=== PATIENT | female | born 1980 | race African-American/Black ===

== ENCOUNTER 2017-06-24 11:27 | Emergency (ER) | payer OTHER, MEDICAID ==
[2017-06-24 11:32] VITALS: BP 166/95
[2017-06-24] MEDS ORDERED: HYDROCODONE/ACETAMINOPHEN 5-325 MG TABLET PO ONE (11:59)
--- NOTE | 2017-06-24 11:59 | ER Document Report ---
ED General - General Chief Complaint: Pain Stated Complaint: FACIAL PAIN/NUMBNESS Time Seen by Provider: 06/24/17 11:33 Notes: Patient presents with severe left-sided facial pain. She states she has had this for several days. She states about 4 years ago she had a similar episode and was told she had trigeminal neuralgia. She states she is also currently being worked up by the [facility] for possible multiple sclerosis because she has foot drop in the bilateral lower extremities. She denies any significant teeth pain. She denies any significant changes of her vision or hearing. The pain is severe and constant. It is sharp. It is worse with movement of her facial muscles. It is better with rest. It does radiate across the left side of her face. TRAVEL OUTSIDE OF THE [place] IN LAST 30 DAYS: No - Related Data Allergies/Adverse Reactions: nut - unspecified Allergy (Intermediate, Verified 06/24/17 11:31) Past Medical History - General Information source: Patient - Social History Smoking Status: Current Every Day Smoker Frequency of alcohol use: Occasional Drug Abuse: None Family History: Reviewed & Not Pertinent Neurological Medical History: Denies: Hx Cerebrovascular Accident Renal/ Medical History: Denies: Hx Peritoneal Dialysis GI Medical History: Reports: Hx Gastroesophageal Reflux Disease - RSD Musculoskeltal Medical History: Reports Hx Fibromyalgia, Reports Hx Muscle Spasm Psychiatric Medical History: Reports: Hx Depression - & Anxiety Past Surgical History: Reports: Hx Section, Hx Tubal Ligation - Immunizations Immunizations up to date: Yes Hx Diphtheria, Pertussis, Tetanus Vaccination: Yes Review of Systems - Review of Systems Constitutional: denies: Chills, Fever EENT: denies: Double vision, Mouth swelling Neurological/Psychological: Weakness. denies: Paralysis Physical Exam - Vital signs Vitals: Temp Pulse BP Pulse Ox 98.6 F 75 166/95 H 100 06/24/17 11:31 06/24/17 11:31 06/24/17 11:31 06/24/17 11:31 Interpretation: Hypertensive - General General appearance: Appears well, Alert - HEENT Head: Normocephalic, Atraumatic, Other - Facial exam shows patient have severe tenderness to palpation of the left side of the face. There does appear to be some mild swelling of the left side of the face diffusely. There is no induration or erythema. I did a thorough exam of the patient's gums and teeth and see no evidence of tooth infection. Eyes: Normal Conjunctiva: Normal Pupils: PERRL Nerve palsy: No Mouth/Lips: Normal Mucous membranes: Moist Pharynx: Normal Neck: Normal - Respiratory Respiratory status: No respiratory distress Chest status: Nontender Breath sounds: Normal Chest palpation: Normal - Cardiovascular Rhythm: Regular Heart sounds: Normal auscultation Murmur: No - Abdominal Inspection: Normal Distension: No distension Bowel sounds: Normal Tenderness: Nontender Organomegaly: No organomegaly - Back Back: Normal, Nontender - Extremities General upper extremity: Normal inspection, Nontender, Normal color, Normal ROM , Normal temperature General lower extremity: Normal inspection, Nontender, Normal color, Normal ROM , Normal temperature, Normal weight bearing. No: Edwardo's sign - Neurological Neuro grossly intact: Yes Cognition: Normal Orientation: AAOx4 Dodge Coma Scale Eye Opening: Spontaneous Dodge Coma Scale Verbal: Oriented Dodge Coma Scale Motor: Obeys Commands Dodge Coma Scale Total: 15 Speech: Normal Motor strength normal: LUE, RUE, LLE, RLE Sensory: Normal - Psychological Associated symptoms: Normal affect, Normal mood - Skin Skin Temperature: Warm Skin Moisture: Dry Skin Color: Normal Course - Vital Signs Vital signs: Temp Pulse Resp BP Pulse Ox 98.6 F 75 166/95 H 100 06/24/17 11:31 06/24/17 11:31 06/24/17 11:31 06/24/17 11:31 Discharge - Discharge Clinical Impression: Trigeminal neuralgia of left side of face Condition: Stable Disposition: HOME, SELF-CARE Instructions: Trigeminal Neuralgia ([facility]) Additional Instructions: Please follow-up with your neurologist at the [facility] as soon as possible. Please call them today to arrange follow-up. Prescriptions: Hydrocodone/Acetaminophen [Brumley 5-325 mg Tablet] 1 tab PO Q6 PRN #15 tablet PRN Reason: Forms: Elevated Blood Pressure
== END 2017-06-24 12:05 | disposition home or self-care (01) ==
LOC: ER 11:27
DX: G50.0 Trigeminal neuralgia (principal); R22.0 Localized swelling, mass and lump, head; R53.1 Weakness; M21.372 Foot drop, left foot; M21.371 Foot drop, right foot; F17.200 Nicotine dependence, unspecified, uncomplicated; Z91.018 Allergy to other foods
CPT/HCPCS: 99283

== ENCOUNTER 2018-02-06 22:03 | Emergency (ER) | payer OTHER, MEDICAID ==
[2018-02-06] MEDS ORDERED: HALOPERIDOL LACTATE INJ 5 MG/1 ML VIAL IV ONE (22:37)
[2018-02-06] MEDS ORDERED: NORMAL SALINE 1000 ML 1,000 ML IV ONE (22:37)
[2018-02-06] MEDS ORDERED: KETOROLAC TROMETHAMINE INJ/PF 30 MG/1 ML SDV IV ONE (22:37)
--- NOTE | 2018-02-06 23:30 | ER Document Report ---
ED General - General Chief Complaint: Headache Stated Complaint: HEADACHE Time Seen by Provider: 02/06/18 22:37 Notes: Patient is a 37-year-old female with history of chronic migraine headaches, endometriosis with chronic lower abdominal pain who presents with an exacerbation of both of the listed conditions. Patient reports that every month for the past 6-8 months in the middle of her menstrual cycle she develops severe lower abdominal discomfort toward the right side that has been treated to a mass associated with endometriosis in her right ovary and right pelvic wall. She is scheduled to follow with surgery regarding this issue. She states that she has been treating this dull, throbbing, constant pain with ibuprofen with minimal improvement. Touching the area worsens the pain. She states this feels exactly the same as all prior exacerbations of this abdominal pain that she has had in the past. She also notes that she is currently having 1 of her typical migraine headaches. She describes as a stabbing, throbbing, severe pain to the right temporal area worsened by lights and sounds. She again tried ibuprofen for this headache with minimal to no improvement. She notes that when she has exacerbation of her endometrial pain it tends to exacerbate her headache. She denies any associated fever, weakness, numbness or confusion. TRAVEL OUTSIDE OF THE [place] IN LAST 30 DAYS: No - Related Data Allergies/Adverse Reactions: nut - unspecified Allergy (Intermediate, Verified 06/24/17 11:31) Past Medical History - General Information source: Patient - Social History Smoking Status: Current Every Day Smoker Chew tobacco use (# tins/day): No Frequency of alcohol use: Occasional Drug Abuse: None Lives with: Alone Family History: Reviewed & Not Pertinent Patient has suicidal ideation: No Patient has homicidal ideation: No Neurological Medical History: Denies: Hx Cerebrovascular Accident Renal/ Medical History: Denies: Hx Peritoneal Dialysis GI Medical History: Reports: Hx Gastroesophageal Reflux Disease - RSD Musculoskeltal Medical History: Reports Hx Fibromyalgia, Reports Hx Muscle Spasm Psychiatric Medical History: Reports: Hx Depression - & Anxiety Past Surgical History: Reports: Hx Section, Hx Tubal Ligation - Immunizations Immunizations up to date: Yes Hx Diphtheria, Pertussis, Tetanus Vaccination: Yes Review of Systems - Review of Systems Notes: Constitutional: Negative for fever. HENT: Negative for sore throat. Eyes: Negative for visual changes. Cardiovascular: Negative for chest pain. Respiratory: Negative for shortness of breath. Gastrointestinal: Positive for abdominal pain Genitourinary: Negative for dysuria. Musculoskeletal: Negative for back pain. Skin: Negative for rash. Neurological: Positive for headaches 10 point ROS negative except as marked above and in HPI. Physical Exam - Vital signs Vitals: Temp Pulse Resp BP Pulse Ox 99.0 F 67 16 155/91 H 99 02/06/18 22:07 02/06/18 22:07 02/06/18 22:07 02/06/18 22:07 02/06/18 22:07 Interpretation: Hypertensive Notes: PHYSICAL EXAMINATION: GENERAL: Well-appearing, well-nourished and in no acute distress. HEAD: Atraumatic, normocephalic. EYES: Pupils equal round and reactive to light, extraocular movements intact, sclera anicteric, conjunctiva are normal. ENT: nares patent, oropharynx clear without exudates. Moderately dry mucous membranes. NECK: Normal range of motion, supple without lymphadenopathy LUNGS: Breath sounds clear to auscultation bilaterally and equal. No wheezes rales or rhonchi. HEART: Regular rate and rhythm without murmurs ABDOMEN: Soft, palpable mass in the right adnexa that is tender to palpation but otherwise no localization of tenderness, normoactive bowel sounds. No guarding, no rebound. No masses appreciated. EXTREMITIES: Normal range of motion, no pitting or edema. No cyanosis. NEUROLOGICAL: Face symmetric. Tongue protrudes midline. Extraocular motions intact. Pupils are 2 mm and equally reactive. Normal speech, normal gait. 5 out of 5 strength in both the distal and proximal upper and lower extremities bilaterally. Sensation is grossly intact throughout. Finger to nose testing normal. Pronator drift normal. PSYCH: Moderately anxious SKIN: Warm, Dry, normal turgor, no rashes or lesions noted. Course - Re-evaluation Re-evalutation: 02/06/18 23:28 Patient presents with complaints of diffuse lower abdominal discomfort which she states that she has gotten every single month for the past 6-8 months related to endometriosis. She states that she is following [facility] issue but sometimes her pain gets out of control if she needs to come the emergency department for further pain control. She states that there is absolutely nothing new or different about this presentation today and she is here purely for pain control. Her abdominal exam does show a palpable mass to the right adnexa which the patient states she knows she has and is followed with the surgeon for surgical removal. She otherwise has no localized tenderness, rebound or guarding. She does also complain of a headache. Patient reports that this is again similar to her prior migraine headaches and again is not new or different in any way. Headache was not maximal in onset, patient has no focal neurologic deficits, no nuchal rigidity, vital signs within normal limits, no papilledema, and patient is overall well in appearance. Based on clinical history and examination I do not suspect an acute subarachnoid hemorrhage, dural venous sinus thrombosis, acute meningitis, or intercranial mass. Given my low clinical suspicion for any acute life- threatening etiology, I do not feel advanced neuro imaging or laboratory testing is indicated at this time. Will proceed with symptom control and reassess the patient. 02/07/18 00:11 Patient has had complete resolution of all of her symptoms and states she feels overall much better. Vitals and labs unremarkable. At this time will discharge with return precautions and follow-up recommendations. Verbal discharge instructions given a the bedside and opportunity for questions given. Medication warnings reviewed. Patient is in agreement with this plan and has verbalized understanding of return precautions and the need for primary care follow-up in the next 24-72 hours. - Vital Signs Vital signs: Temp Pulse Resp BP Pulse Ox 99.0 F 67 16 155/91 H 99 02/06/18 22:07 02/06/18 22:07 02/06/18 22:07 02/06/18 22:07 02/06/18 22:07 - Laboratory Result Diagrams: 02/06/18 23:00 02/06/18 23:00 Laboratory results interpreted by me: 02/06/18 02/06/18 23:00 23:42 Hct 35.4 L MCV 79 L RDW 14.9 H Urine Blood SMALL H Discharge - Discharge Clinical Impression: Chronic abdominal pain, Endometriosis Acute headache Qualifiers: Headache type: unspecified Intractability: not intractable Qualified Code(s): R51 - Headache Condition: Good Disposition: HOME, SELF-CARE Additional Instructions: You have been seen in the Emergency Department (ED) for a headache. Please use Tylenol (acetaminophen) or Motrin (ibuprofen) as needed for symptoms, but only as written on the box. As we have discussed, please follow up with your primary care doctor as soon as possible regarding today's ED visit and your headache symptoms. Call your doctor or return to the ED if you have a worsening headache, sudden and severe headache, confusion, slurred speech, facial droop, weakness or numbness in any arm or leg, extreme fatigue, or other symptoms that concern you. You have been seen in the Emergency Department (ED) for abdominal pain. Please follow up with your doctor as soon as possible regarding today's emergent visit and the symptoms that are bothering you. Return to the ED if your abdominal pain worsens or fails to improve, you develop bloody vomiting, bloody diarrhea, you are unable to tolerate fluids due to vomiting, fever greater than 101, or other symptoms that concern you. Referrals: JAMES LEONARD PA [Primary Care Provider] - Follow up as needed
[2018-02-06 23:48] LABS: ABSOLUTE EOSINOPHILS # (AUTO) 0.2 10^3/uL (0.0-0.6); ABSOLUTE LYMPHOCYTES (AUTO) 3.8 10^3/uL (0.5-4.7); ABSOLUTE MONOCYTES (AUTO) 0.8 10^3/uL (0.1-1.4); ABSOLUTE NEUT (AUTO) 4.3 10^3/uL (1.7-8.2); BASOPHILS % (AUTO) 0.4 % (0-2); EOSINOPHILS % (AUTO) 1.7 % (0-6); HEMATOCRIT 35.4 % (36.0-47.0); HEMOGLOBIN 12.2 g/dL (12.0-15.5); LYMPHOCYTES % (AUTO) 42.1 % (13-45); MEAN CORPUSCULAR HEMOGLOBIN 27.1 pg (27.0-33.4); MEAN CORPUSCULAR HGB CONC 34.5 g/dL (32.0-36.0); MEAN CORPUSCULAR VOLUME 79 fl (80-97); MONOCYTES % (AUTO) 8.4 % (3-13); PLATELET COUNT 329 10^3/uL (150-450); RED BLOOD COUNT 4.51 10^6/uL (3.72-5.28); RED CELL DISTRIBUTION WIDTH 14.9 % (11.5-14.0); SEGMENTED NEUTROPHILS % (AUTO) 47.4 % (42-78); TOTAL CELLS COUNTED % (AUTO) 100 %
[2018-02-06 23:56] LABS: ALANINE AMINOTRANSFERASE 25 U/L (9-52); ALBUMIN 3.7 g/dL (3.5-5.0); ALKALINE PHOSPHATASE 80 U/L (38-126); ASPARTATE AMINO TRANSFERASE 17 U/L (14-36); BILIRUBIN,DIRECT 0.3 mg/dL (0.0-0.4); BILIRUBIN,TOTAL 0.3 mg/dL (0.2-1.3); BLOOD UREA NITROGEN 14 mg/dL (7-20); CALCIUM 9.5 mg/dL (8.4-10.2); CARBON DIOXIDE 25 mmol/L (22-30); GLUCOSE 85 mg/dL (75-110)
[2018-02-07] LABS: APPEARANCE,URINE CLEAR; BILIRUBIN,URINE NEGATIVE (NEGATIVE); COLOR,URINE STRAW; GLUCOSE, URINE NEGATIVE (NEGATIVE); KETONES,URINE NEGATIVE (NEGATIVE); LEUKOCYTE ESTERASE,URINE NEGATIVE (NEGATIVE); NITRITE,URINE NEGATIVE (NEGATIVE); PROTEIN,URINE NEGATIVE (NEGATIVE); UROBILINOGEN,URINE NEGATIVE mg/dL (<2.0)
[2018-02-07 00:01] LABS: ANION GAP 9 (5-19); CHLORIDE 106 mmol/L (98-107); POTASSIUM 3.9 mmol/L (3.6-5.0); SODIUM 139.7 mmol/L (137-145)
[2018-02-07 00:28] VITALS: BP 150/85
== END 2018-02-07 00:30 | disposition home or self-care (01) ==
LOC: ER 22:03
DX: N80.9 Endometriosis, unspecified (principal); R51 Headache; R10.30 Lower abdominal pain, unspecified; G89.29 Other chronic pain; F17.200 Nicotine dependence, unspecified, uncomplicated
CPT/HCPCS: 99284; 96361; 96374; 96375; 36415; 84703; 85025; 80053; 81001; J1630; J1885; J7030

== ENCOUNTER 2018-07-29 23:00 | Emergency (ER) | payer OTHER, MEDICAID ==
[2018-07-29] MEDS ORDERED: HYDROCODONE/ACETAMINOPHEN 5-325 MG (6 TAB/ER DISP) PO PRN (23:59)
--- NOTE | 2018-07-30 00:02 | ER Document Report ---
ED General - General Chief Complaint: Numbness of Face Stated Complaint: HEADACHE Time Seen by Provider: 07/29/18 23:11 Notes: Patient is a 38-year-old female that comes to the emergency department for chief complaint of right-sided headache and right-sided neck pain. She states it is a stabbing, shooting pain along the right side of her face with intermittent numbness. She is has had this for a long time, she has seen neurology and diagnosed with trigeminal neuralgia. She denies headache otherwise. She states it hurts when she turns her head to the side. She denies any other areas of numbness, denies fever, denies reinjury. She also has a history of foot drop, she walks with a cane, uses the cane on the right side. Patient states she is on Lyrica, she has been prescribed baclofen for muscle relaxer for muscle spasms in the past but states this does not really work. She is taking ibuprofen for pain. She has had pain medication in the past but denies that she is currently taking any. TRAVEL OUTSIDE OF THE [place] IN LAST 30 DAYS: No - Related Data Allergies/Adverse Reactions: nut - unspecified Allergy (Intermediate, Verified 06/24/17 11:31) Past Medical History - General Information source: Patient - Social History Smoking Status: Current Every Day Smoker Smoking Education Provided: Yes - <3 min Frequency of alcohol use: None Drug Abuse: None Lives with: Family Family History: Reviewed & Not Pertinent Neurological Medical History: Reports: Hx Migraine, Other - Trigeminal neuralgia. Denies: Hx Cerebrovascular Accident Renal/ Medical History: Denies: Hx Peritoneal Dialysis GI Medical History: Reports: Hx Gastroesophageal Reflux Disease - RSD Musculoskeletal Medical History: Reports Hx Fibromyalgia, Reports Hx Muscle Spasm, Reports Other - Foot drop Psychiatric Medical History: Reports: Hx Depression Past Surgical History: Reports: Hx Section, Hx Tubal Ligation - Immunizations Immunizations up to date: Yes Hx Diphtheria, Pertussis, Tetanus Vaccination: Yes Review of Systems - Review of Systems Constitutional: No symptoms reported EENT: No symptoms reported Cardiovascular: No symptoms reported Respiratory: No symptoms reported Gastrointestinal: No symptoms reported Genitourinary: No symptoms reported Female Genitourinary: No symptoms reported Musculoskeletal: See HPI Skin: No symptoms reported Hematologic/Lymphatic: No symptoms reported Neurological/Psychological: No symptoms reported Physical Exam - Vital signs Vitals: Temp Pulse Resp BP Pulse Ox 98.2 F 73 18 145/84 H 98 07/29/18 23:06 07/29/18 23:06 07/29/18 23:06 07/29/18 23:06 07/29/18 23:06 - Notes Notes: GENERAL: Patient does not appear to be in any distress, she has downcast eyes, she is very quiet. HEAD: Normocephalic, atraumatic. EYES: Pupils equal, round, and reactive to light. Some photophobia. Extraocular movements intact. ENT: Oral mucosa moist, tongue midline. Oropharynx unremarkable. Airway patent. Nares patent, no nasal septal hematoma, TM's intact. NECK: Full range of motion. Supple. Trachea midline. LUNGS: Clear to auscultation bilaterally, no wheezes, rales, or rhonchi. No respiratory distress. HEART: Regular rate and rhythm. No murmur ABDOMEN: Soft, non-tender. Non-distended. Bowel sounds present in all 4 quadrants. GENITOURINARY: Deferred EXTREMITIES: Moves all 4 extremities spontaneously. No edema, normal radial and dorsalis pedis pulses bilaterally. No cyanosis. Chronic foot drop and uses a cane. BACK: Pain with palpation over the right paracervical and trapezius muscles. Pain with lateral range of motion of the neck which is mild. No cervical, thoracic, lumbar midline tenderness. No saddle anesthesia, normal distal neurovascular exam. NEUROLOGICAL: Alert and oriented x3. Normal speech. [cranial nerves II through XII grossly intact]. PSYCH: initially very reserved and quiet SKIN: Warm, dry, normal turgor. No rashes or lesions noted. Course - Re-evaluation Re-evalutation: Patient with limited range of motion laterally, painful palpation of the paracervical and right trapezius muscle, uses the cane on the same side. Patient denies injury or fever. Denies headache outside of the shooting pain along the side of the face/head. Suspect muscle spasm component for the back/ neck, patient is complaining specifically of muscle spasms. She also complains of trigeminal neuralgia pain but this is chronic. She has neurology follow-up for this. She denies any headaches separately. Patient talked for a long time , then began crying, afterwards states she feels much better. She denies SI or HI, states she just felt like she needed to vent. Patient asked for a few of Valium, states this is helped her a lot muscle spasms in the past. She states the baclofen they gave her does not work and she does not like taking it. I did prescribe her a small amount, she has good follow-up. Cautioned her to not take them both at the same time and not abuse the medication. Patient has had multiple MRIs. Based on her previous history and examination today I have low suspicion of acute spinal cord compression, intracranial hemorrhage, mass, meningitis, subarachnoid hemorrhage based on her symptoms, chronicity, evaluation. Discussed follow-up and return precautions. Patient states understanding and agreement. - Vital Signs Vital signs: Temp Pulse Resp BP Pulse Ox 98.5 F 70 18 120/75 99 07/30/18 00:36 07/30/18 00:36 07/30/18 00:36 07/30/18 00:36 07/30/18 00:36 Discharge - Discharge Clinical Impression: Facial pain, Facial numbness, Neck pain, Muscle spasm Condition: Stable Disposition: HOME, SELF-CARE Additional Instructions: Your evaluation indicates pain from trigeminal neuralgia, pain from trapezius and paracervical muscle strain and spasm. To provide medications, do not combine the Valium and the baclofen, avoid sedating medication, alcohol, or driving while taking the Valium. Follow-up with your neurologist for additional evaluation and management of trigeminal neuralgia. Follow-up with your primary care for additional management of muscle spasms. Return if you worsen including fever, increased pain, new numbness, incontinence , or any other concerning or worsening symptoms. Prescriptions: Diazepam [Valium 5 mg Tablet] 1 - 2 mg PO TID PRN #12 tablet PRN Reason: Referrals: JAMES LEONARD PA [PHYSICIAN DIRECTOR CHILD ABUSE THERAPY] - Follow up as needed
[2018-07-30 00:37] VITALS: BP 120/75
== END 2018-07-30 00:37 | disposition home or self-care (01) ==
LOC: ER 23:00
DX: G50.0 Trigeminal neuralgia (principal); M54.2 Cervicalgia; M62.838 Other muscle spasm; R20.0 Anesthesia of skin; H53.149 Visual discomfort, unspecified; M21.379 Foot drop, unspecified foot; F17.200 Nicotine dependence, unspecified, uncomplicated
CPT/HCPCS: 99284

== ENCOUNTER 2018-08-04 17:06 | Emergency (ER) | payer OTHER, MEDICAID ==
--- NOTE | 2018-08-04 19:26 | ER Document Report ---
ED Extremity Problem, Lower - General Chief Complaint: Foot Pain Stated Complaint: FOOT PAIN Time Seen by Provider: 08/04/18 18:59 Mode of Arrival: Ambulatory Information source: Patient Notes: 38-year-old female presenting today for complaint of pain and cramping to bilateral feet. She states she has had this pain chronically. She has foot drops but has been worse for the past week. [facility] states that [facility] but that is "working and that she was seen here recently and given Valium which did help. She states she is out of the Valium and does have a appointment with her primary care doctor and the [facility] . TRAVEL OUTSIDE OF THE [place] IN LAST 30 DAYS: No - HPI Patient complains to provider of: Pain Location: Foot Occurred: Other - Chronic Quality of pain: Cramping Severity: Moderate Pain Level: 4 Context: Other - Has foot drop with chronic cramping Recent injury: No - pain to both feet Associated symptoms: Painful ambulation Exacerbated by: Hanging down, Movement, Walking Relieved by: Nothing - Related Data Allergies/Adverse Reactions: nut - unspecified Allergy (Intermediate, Verified 06/24/17 11:31) Past Medical History - General Information source: Patient - Social History Smoking Status: Current Every Day Smoker Cigarette use (# per day): Yes - Pack a day Smoking Education Provided: Yes - Minutes Frequency of alcohol use: None Drug Abuse: None Lives with: Family Family History: Reviewed & Not Pertinent Patient has suicidal ideation: No Patient has homicidal ideation: No - Past Medical History Cardiac Medical History: Reports: None Pulmonary Medical History: Reports: None EENT Medical History: Reports: None Neurological Medical History: Reports: Hx Migraine Endocrine Medical History: Reports: None Renal/ Medical History: Reports: None Malignancy Medical History: Reports: None GI Medical History: Reports: Hx Gastroesophageal Reflux Disease - RSD Musculoskeletal Medical History: Reports Hx Fibromyalgia, Reports Hx Muscle Spasm, Reports Hx Musculoskeletal Deformity, Reports Hx Musculoskeletal Trauma, Reports Hx Restless Leg Syndrome, Reports Other - Foot drop Skin Medical History: Reports None Psychiatric Medical History: Reports: Hx Depression Traumatic Medical History: Reports: None Infectious Medical History: Reports: None Past Surgical History: Reports: Hx Section, Hx Tubal Ligation - Immunizations Immunizations up to date: Yes Hx Diphtheria, Pertussis, Tetanus Vaccination: Yes Review of Systems - Review of Systems Notes: REVIEW OF SYSTEMS: CONSTITUTIONAL : Denies fever, chills, or sweats. Denies recent illness. EENT: Denies eye, ear, throat, or mouth pain or symptoms. Denies nasal or sinus congestion or discharge. Denies throat, tongue, or mouth swelling or difficulty swallowing. CARDIOVASCULAR: Denies chest pain. Denies palpitations or racing or irregular heart beat. Denies ankle edema. RESPIRATORY: Denies cough, cold, or chest congestion. Denies shortness of breath, difficulty breathing, or wheezing. GASTROINTESTINAL: Denies abdominal pain or distention. Denies nausea, vomiting , or diarrhea. Denies blood in vomitus, stools, or per rectum. Denies black, tarry stools. Denies constipation. GENITOURINARY: Denies difficulty urinating, painful urination, burning, frequency, blood in urine, or discharge. FEMALE GENITOURINARY: Denies vaginal bleeding, heavy or abnormal periods, irregular periods. Denies vaginal discharge or odor. MUSCULOSKELETAL: Denies back or neck pain or stiffness. Planes of pain and decreased range of motion to the feet and ankles. She states she has had foot drop with chronic cramping to the feet for a while. She states she was taking baclofen but that is quite working for the cramps. She states that she received Valium recently and that helped but she has run out of the Valium. She states she has an appointment with her primary care doctor and [facility] on . SKIN: Denies rash, lesions or sores. HEMATOLOGIC : Denies easy bruising or bleeding. LYMPHATIC: Denies swollen, enlarged glands. NEUROLOGICAL: Denies confusion or altered mental status. Denies passing out or loss of consciousness. Denies dizziness or lightheadedness. Denies headache. Denies weakness or paralysis or loss of use of either side. Denies problems with gait or speech. Denies sensory loss, numbness, or tingling. Denies seizures. PHYSICAL EXAMINATION: GENERAL: Well-appearing, well-nourished and in no acute distress. HEAD: Atraumatic, normocephalic. EYES: Pupils equal round and reactive to light, extraocular movements intact, conjunctiva are normal. ENT: Nares patent, oropharynx clear without exudates. Moist mucous membranes. NECK: Normal range of motion, supple without lymphadenopathy LUNGS: Breath sounds clear to auscultation bilaterally and equal. No wheezes rales or rhonchi. HEART: Regular rate and rhythm without murmurs ABDOMEN: Soft, nontender, nondistended abdomen. No guarding, no rebound. No masses appreciated. Female : deferred Musculoskeletal: Decreased range of motion to bilateral feet worse on the left. Normal range of motion, no pitting or edema. No cyanosis. NEUROLOGICAL: Cranial nerves grossly intact. Normal speech, normal gait. Normal sensory, motor exams PSYCH: Normal mood, normal affect. SKIN: Warm, Dry, normal turgor, no rashes or lesions noted. PSYCHIATRIC: Denies anxiety or stress. Denies depression, suicidal ideation, or homicidal ideation. ALL OTHER SYSTEMS REVIEWED AND NEGATIVE. Dictation was performed using [employer] voice recognition software Physical Exam - Vital signs Vitals: Temp Pulse Resp BP Pulse Ox 98.8 F 94 14 144/91 H 98 08/04/18 17:17 08/04/18 17:17 08/04/18 17:17 08/04/18 17:17 08/04/18 17:17 Course - Vital Signs Vital signs: Temp Pulse Resp BP Pulse Ox 97.9 F 87 15 140/88 H 99 08/04/18 19:38 08/04/18 19:38 08/04/18 19:38 08/04/18 19:38 08/04/18 19:38 Discharge - Discharge Clinical Impression: Muscle spasm, Foot spasms Condition: Stable Disposition: HOME, SELF-CARE Instructions: Exercises for the Foot Muscles ([facility]) Additional Instructions: You were seen today for chronic foot spasms to-year-old left foot. You state that the baclofen the [facility] was given you was working but that has stopped recently. You state that the [facility] will not give you anything but baclofen. I have given you a prescription for 8 of the Valium 5 mg. Please be sure when you see your primary doctor on and your [facility] provider that you get a scription for the volume in the neurology and podiatry consult for your chronic spasms to the feet. I had suggested that she try foot exercises but you state you are not able to move your foot since her injury in the . I also suggested paraffin wax baths for the pain but you would have to talk to your primary care doctor and your [facility] doctor to see if you can get a prescription for this treatment. I also recommended that you as your [facility] doctor and primary doctor for some physical therapy for your spasms. Benzodiazepines You have been given a benzodiazepine medication. Examples of this type of medicine include Valium, Xanax, Librium, Ativan, and Halcion. Benzodiazepines have many uses. Medications of this type are used for insomnia, anxiety, muscle spasms, seizures, and drug and alcohol withdrawal. You may become very drowsy when you first take the medication. You should not drive or operate machinery while under its effects. Do not combine the medication with alcohol, or with any other medication without talking to your doctor. Do not take if without specific instruction from your power technician. Some benzodiazepines may have harmful interactions with oral antifungal medicines such as ketoconazole, itraconazole, and nefazodone. If you are taking an antifungal medicine, discuss this with your doctor before taking benzodiazepines. FOLLOW-UP CARE: If you have been referred to a physician for follow-up care, call the physician s office for an appointment as you were instructed or within the next two days. If you experience worsening or a significant change in your symptoms, notify the physician immediately or return to the Emergency Department at any time for re-evaluation. Prescriptions: Diazepam [Valium 5 mg Tablet] 5 mg PO TIDP PRN #8 tablet PRN Reason: Forms: Elevated Blood Pressure Referrals: [facility] [Primary Care Provider] - Follow up as needed JAMES LEONARD PA [PHYSICIAN INTERNETWORKING TECHNICIAN] - Follow up as needed LACY GARCIA MD [NO LOCAL MD] - Follow up as needed MARGARETTE PARKER DPM [ACTIVE STAFF] - Follow up as needed
[2018-08-04 19:39] VITALS: BP 140/88
== END 2018-08-04 19:39 | disposition home or self-care (01) ==
LOC: ER 17:06
DX: M62.838 Other muscle spasm (principal); M79.672 Pain in left foot; M79.671 Pain in right foot; F17.210 Nicotine dependence, cigarettes, uncomplicated; Z98.51 Tubal ligation status
CPT/HCPCS: 99283

== ENCOUNTER → 2018-09-09 | Outpatient (CLI) | payer OTHER ==
--- NOTE | 2018-09-09 13:51 | RADIOLOGY REPORT (SQ) ---
EXAM DESCRIPTION: CT ABD/PELVIS WITH IV ONLY COMPLETED DATE/TIME: 09/09/2018 1:24 pm REASON FOR STUDY: R19.07 GENERALIZED INTRA-ABD AND PELVIC SWELLING, MASS AND LUMP R19.07 GENERALIZE D INTRA-ABD AND PELVIC SWELLING, MASS AND L COMPARISON: None. TECHNIQUE: CT scan of the abdomen and pelvis performed using helical scanning technique with dynamic intravenous contrast injection. No oral contrast. Images reviewed with lung, soft tissue, and bone windows. Reconstructed coronal and sagittal MPR images reviewed. Delayed images for evaluation of the urinary system also acquired. All images stored on PACS. All CT scanners at this facility use dose modulation, iterative reconstruction, and/or weight based d osing when appropriate to reduce radiation dose to as low as reasonably achievable (ALARA). [facility]: Dose Right [facility]: CareDose [facility]: Dose Right [facility]: Teradose 4D [facility]: Mango DSP CONTRAST TYPE AND DOSE: contrast/concentration: Isovue 350.00 mg/ml; Total Contrast Delivered: 94.0 ml; Total Saline Delivered: 71.0 ml RENAL FUNCTION: None required. The patient is less than 50 years old. RADIATION DOSE: CT Rad equipment meets quality standard of care and radiation dose reduction techniq ues were employed. CTDIvol: 15.0 - 15.1 mGy. DLP: 1596 mGy-cm.. LIMITATIONS: None. FINDINGS: LOWER CHEST: No significant findings. No nodules or infiltrates. LIVER: Normal size. No masses. No dilated ducts. SPLEEN: Normal size. No focal lesions. PANCREAS: No masses. No significant calcifications. No adjacent inflammation or peripancreatic fluid collections. Pancreatic duct not dilated. GALLBLADDER: No identified stones by CT criteria. No inflammatory changes to suggest cholecystitis. ADRENAL GLANDS: No significant masses or asymmetry. RIGHT KIDNEY AND URETER: No solid masses. No significant calcifications. No hydronephrosis or hyd roureter. LEFT KIDNEY AND URETER: No solid masses. No significant calcifications. No hydronephrosis or hydr oureter. AORTA AND VESSELS: No aneurysm. No dissection. Renal arteries, SMA, celiac without stenosis. RETROPERITONEUM: No retroperitoneal adenopathy, hemorrhage or masses. BOWEL AND PERITONEAL CAVITY: No masses or inflammatory changes. No free fluid or peritoneal masses. APPENDIX: Normal. PELVIS: No mass. No free fluid. Normal bladder. ABDOMINAL WALL: No masses. No hernias. BONES: No significant or acute findings. OTHER: No other significant finding. IMPRESSION: NO SIGNIFICANT OR ACUTE FINDING IN THE ABDOMEN OR PELVIS ON CT SCAN WITH IV CONTRAST. TECHNICAL DOCUMENTATION: JOB ID: [id number] Quality ID # [id number]: Final reports with documentation of one or more dose reduction techniques (e.g., Au tomated exposure control, adjustment of the mA and/or kV according to patient size, use of iterative reconstruction technique) 2010 [employer]- All Rights Reserved Reading location - IP/workstation name: [email or web address]
== END ==
LOC: RAD 15:48
PROVIDERS: ATTEND Physician Assistant Surgical
DX: R19.07 Generalized intra-abdominal and pelvic swelling, mass and lump (principal)
CPT/HCPCS: 74177

== ENCOUNTER → 2018-09-17 | Outpatient (CLI) | payer OTHER, MEDICAID ==
[2018-09-17 11:48] LABS: FREE T3 3.22 pg/mL (2.77-5.27); FREE T4 (FREE THYROXINE) 0.82 ng/dL (0.78-2.19)
[2018-09-17 12:02] LABS: THYROID STIMULATING HORMONE 2.65 uIU/mL (0.47-4.68)
[2018-09-17 12:31] LABS: FOLATE 16.8 ng/mL (>2.76)
== END ==
LOC: OD 09:25
PROVIDERS: ATTEND Specialist
DX: G62.9 Polyneuropathy, unspecified (principal)
CPT/HCPCS: 36415; 82550; 82607; 82746; 83036; 84439; 84443; 84481; 85652; 86038

== ENCOUNTER 2018-09-24 06:50 | Day surgery (SDC) | payer OTHER, MEDICAID ==
[~2018-09-24 06:50] MED LIST: CEFAZOLIN SODIUM 2 GM in DEXTROSE 5%-WATER 100 ML IV PRN; LACTATED RINGERS 1000 ML IV PRN; LIDOCAINE 0.5% INJ-PF (5 MG/ML) 50 ML SDV SUBCUT PRN
[2018-09-24] MEDS ORDERED: ALBUTEROL SULFATE 0.083% NEB 2.5 MG/3 ML AMPUL NEB ONE (07:41)
[2018-09-24] MEDS ORDERED: BUPIVACAINE HCL 0.5%-EPI 1:200000 INJ/PF 30 ML VIAL ONE (07:43)
[2018-09-24 07:57] LABS: HEMATOCRIT 35.2 % (36.0-47.0); MEAN CORPUSCULAR HEMOGLOBIN 26.6 pg (27.0-33.4); MEAN CORPUSCULAR HGB CONC 34.2 g/dL (32.0-36.0); MEAN CORPUSCULAR VOLUME 78 fl (80-97); PLATELET COUNT 316 10^3/uL (150-450); RED BLOOD COUNT 4.53 10^6/uL (3.72-5.28); RED CELL DISTRIBUTION WIDTH 14.1 % (11.5-14.0); WHITE BLOOD COUNT 8.4 10^3/uL (4.0-10.5)
[2018-09-24] MEDS ORDERED: CEFAZOLIN INJ 1 GM VIAL ONE (08:03)
[2018-09-24] MEDS ORDERED: SCOPOLAMINE HYDROBROMIDE 1.5 MG PATCH.TD72 ONE (08:22)
[2018-09-24] MEDS ORDERED: FAMOTIDINE INJ/PF 20 MG/2 ML SDV IV ONE ×2 (08:22→08:30)
[2018-09-24] MEDS ORDERED: MIDAZOLAM 2 MG/2 ML INJ ONE (08:23)
[2018-09-24] MEDS ORDERED: FENTANYL CITRATE INJ/PF 250 MCG/5 ML AMPULE ONE (08:23)
[2018-09-24] MEDS ORDERED: EPHEDRINE SULFATE INJ 50 MG/1 ML AMPULE ONE (08:23)
[2018-09-24] MEDS ORDERED: ACETAMINOPHEN 1,000 MG/100 ML RTUPB IV ONE (08:24)
[2018-09-24] MEDS ORDERED: PROPOFOL INJ 200 MG/20 ML VIAL IV ONE (08:24)
[2018-09-24] MEDS ORDERED: SCOPOLAMINE HYDROBROMIDE 1.5 MG PATCH.TD72 TD ONE (08:30)
[2018-09-24] MEDS ORDERED: MORPHINE SULFATE 10 MG/ML INJ IV PRN ×2 (09:02→13:11)
[2018-09-24] MEDS ORDERED: FENTANYL CITRATE INJ/PF 100 MCG/2 ML AMPUL IV PRN ×3 (09:02)
[2018-09-24] MEDS ORDERED: DIPHENHYDRAMINE HCL 50 MG/ML VIAL IV PRN (09:02)
[2018-09-24] MEDS ORDERED: OXYCODONE-ACETAMINOPHEN 5-325 MG TABLET PO PRN ×2 (09:02)
[2018-09-24] MEDS ORDERED: MEPERIDINE HCL/PF INJ 25 MG/1 ML DISP.SYRIN IV PRN (09:02)
[2018-09-24] MEDS ORDERED: PROMETHAZINE HCL INJ 25 MG/1 ML VIAL IV PRN ×2 (09:02)
--- NOTE | 2018-09-24 10:09 | Operative Report ---
Operative Report DATE OF SURGERY: 09/24/18 PREOPERATIVE DIAGNOSIS: abdominal mass POSTOPERATIVE DIAGNOSIS: endometrioma OPERATION: excision of abdominal wall mass and abdominal wall reconstruction 1ST CASTINGS TRIMMER: ELIEL CAMARILLO ANESTHESIA: GA TISSUE REMOVED OR ALTERED: abdominal mass COMPLICATIONS: none ESTIMATED BLOOD LOSS: 50 INTRAOPERATIVE FINDINGS: endometrioma. PROCEDURE: see dictation
[2018-09-24] MEDS: FENTANYL CITRATE INJ/PF 100 MCG/2 ML AMPUL ONE ×3 (10:26→10:40)
[2018-09-24] MEDS: HYDROMORPHONE HCL INJ/PF 2 MG/ML AMPULE ONE ×3 (10:47→11:23)
[2018-09-24] MEDS ORDERED: KETOROLAC TROMETHAMINE INJ/PF 30 MG/1 ML SDV ONE (11:02)
[2018-09-24] MEDS ORDERED: ONDANSETRON HCL INJ/PF 4 MG/2 ML SDV ONE (11:40)
[2018-09-24] MEDS ORDERED: DEXAMETHASONE SOD PHOSPHATE INJ 4 MG/1 ML VIAL ONE (11:40)
--- NOTE | 2018-09-24 11:42 | OPERATIVE REPORT E ---
Operative Report NAME: REX ORELLANA : 1980 AGE: 38Y DATE OF SURGERY: 09/24/2018 ROOM: PREOPERATIVE DIAGNOSIS: Lower abdominal wall mass. POSTOPERATIVE DIAGNOSIS: Lower abdominal endometrioma. OPERATIVE PROCEDURE: Wide excision of lower abdominal mass with abdominal wall reconstruction. SURGEON: VERONICA EVANS M.D. FRENCH INSTRUCTOR: VALENTIN Silverio for wound retraction, suture placement, wound closure. PROCEDURE: The patient was brought to the operating room in awake, alert, and stable condition, placed on the operating table in supine position, induced under general anesthesia, and intubated. The lower abdomen was prepped and draped in the usual sterile manner for the procedure. A curvilinear incision was made in the skin crease of the lower abdominal wall just above the pubic symphysis and dissection was carried out through subcutaneous tissue with Bovie cautery. Approximately a 15 cm long incision was made. Superior skin flaps were then raised with Bovie cautery just above the subcutaneous tissue where the mass was palpated. An inferior skin flap was also raised above the pubic symphysis. Once this was completed, we palpated the mass and it was fixed to the rectus muscle. Circumferentially, we came around the mass with Bovie cautery until we reached the edges of the rectus muscle. The mass was piercing through the external oblique fascia and the anterior rectus fascia. The mass was fixed to the fascia. We excised the mass circumferentially with Bovie cautery down to the rectus fascia and the posterior peritoneum. The mass was approximately 6-8 cm in diameter and we sent that off to pathology. It proved to be an endometrioma. The pathologist said one of the margins, the lateral margin was still positive, so I excised a secondary margin on the right lateral rectus fascia at the edge of it with Bovie cautery and sent that down as a separate specimen. Once this was completed, we closed the posterior sheath of the rectus muscle with an interrupted #1 Vicryl suture. This effectively closed the posterior sheath and did not allow for any protrusion of the abdominal viscera. However, the anterior sheath and the rectus fascia could not be reapproximated secondary to the excision because of the mass. I therefore used a piece of gore-A mesh and fixed it circumferentially to the rectus muscle and the rectus fascia laterally where there still remained fascia. Once this was completed, we had good closure of the rectus muscle. We closed the Nuris's fascia with interrupted placed 2-0 Polysorb sutures and then the subcutaneous tissue was reapproximated with interrupted 2-0 PolySorb sutures and the skin was reapproximated with running 3-0 Rapide suture. Steri-Strips were applied. Estimated blood loss was approximately 50 mL. Sponge and needle counts were correct x2. It should be noted that I did leave a drain on top of the rectus fascia and brought that out through a stab wound in the right lower quadrant. After sterile dressings were applied, the patient was awakened in the operating room, extubated, transferred to recovery in stable condition and no complications. DICTATING PHYSICIAN: VERONICA EVANS M.D. [id number] PHY#: [id number] ID: [id number] JOB#: [id number] ACCT: [id number] cc:VERONICA EVANS M.D. >
[2018-09-24] MEDS ORDERED: HYDROMORPHONE HCL INJ/PF 2 MG/ML AMPULE IV PRN (13:14)
[2018-09-24] MEDS: OXYCODONE-ACETAMINOPHEN 5-325 MG TABLET PO PRN ×2 (15:01→20:35)
[2018-09-24] MEDS: CEFAZOLIN 2 GM/D5W RTU 2 GM/50 ML RTUPB IV SCH ×2 (15:02→22:52)
[2018-09-24] MEDS: DEXTROSE 5%-LACTATED RINGERS 1,000 ML IV PRN (20:35)
[2018-09-24] MEDS: FAMOTIDINE INJ/PF 20 MG/2 ML SDV IV SCH (22:52)
[2018-09-25] MEDS: OXYCODONE-ACETAMINOPHEN 5-325 MG TABLET PO PRN ×3 (03:55→13:04)
[2018-09-25] MEDS: ONDANSETRON 4 MG TAB.RAPDIS PO PRN ×2 (05:30→16:15)
[2018-09-25] MEDS: CEFAZOLIN 2 GM/D5W RTU 2 GM/50 ML RTUPB IV SCH ×2 (05:30→13:05)
[2018-09-25 07:17] LABS: HEMATOCRIT 32.9 % (36.0-47.0); HEMOGLOBIN 11.8 g/dL (12.0-15.5); MEAN CORPUSCULAR HEMOGLOBIN 27.4 pg (27.0-33.4); MEAN CORPUSCULAR HGB CONC 35.8 g/dL (32.0-36.0); MEAN CORPUSCULAR VOLUME 76 fl (80-97); PLATELET COUNT 312 10^3/uL (150-450)
[2018-09-25 07:28] LABS: WHITE BLOOD COUNT 21.1 10^3/uL (4.0-10.5)
[2018-09-25 07:31] LABS: ANION GAP 7 (5-19); BLOOD UREA NITROGEN 13 mg/dL (7-20); CALCIUM 9.2 mg/dL (8.4-10.2); CARBON DIOXIDE 28 mmol/L (22-30); CHLORIDE 102 mmol/L (98-107); GLUCOSE 115 mg/dL (75-110); POTASSIUM 4.4 mmol/L (3.6-5.0); SODIUM 136.5 mmol/L (137-145)
[2018-09-25 08:04] LABS: ABSOLUTE LYMPHOCYTES# (MANUAL) 1.7 10^3/uL (0.5-4.7); ABSOLUTE MONOCYTES # (MANUAL) 1.1 10^3/uL (0.1-1.4); ABSOLUTE NEUTROPHILS# (MANUAL) 18.4 10^3/uL (1.7-8.2); BASOPHILS % (MANUAL) 0 % (0-2); EOSINOPHILS % (MANUAL) 0 % (0-6); LYMPHOCYTES % (MANUAL) 8 % (13-45); MONOCYTES % (MANUAL) 5 % (3-13); SEGMENTED NEUTROPHILS % (MAN) 87 % (42-78); TOTAL CELLS COUNTED 100
[2018-09-25 08:05] LABS: HYPOCHROMASIA SLIGHT; PLATELET COMMENT ADEQUATE; POLYCHROMASIA SLIGHT; TOXIC GRANULATION SLIGHT
[2018-09-25] MEDS ORDERED: KETOROLAC TROMETHAMINE INJ/PF 30 MG/1 ML SDV ONE (08:39)
[2018-09-25] MEDS ORDERED: KETOROLAC TROMETHAMINE INJ/PF 30 MG/1 ML SDV IV SCH ×2 (09:00→12:00)
[2018-09-25] MEDS ORDERED: DOCUSATE SODIUM 100 MG CAPSULE PO SCH (10:00)
[2018-09-25] MEDS: DEXTROSE 5%-LACTATED RINGERS 1,000 ML IV PRN (10:33)
[2018-09-25] MEDS: FAMOTIDINE INJ/PF 20 MG/2 ML SDV IV SCH (10:33)
--- NOTE | 2018-09-25 16:19 | Discharge Summary ---
Discharge Summary (SDC) - Discharge Final Diagnosis: abdominal mass Date of Surgery: 09/24/18 Condition: Good Forms: Discharge POC-Adult Referrals: SURGICALIST,SURGICAL MD [ACTIVE STAFF] - 10/02/18 9:45 am (Follow up at [facility]) Discharge Diet: As Tolerated Respiratory Treatments at Home: Incentive Spirometer Discharge Activity: Activity As Tolerated, Balance Activity w/Rest, No Driving, No Lifting Over 10 Pounds, No Lifting/Push/Pulling, Pelvic Rest, No tub bath Home Care Assistance: None Needed Report the Following to Your Physician Immediately: Nausea, Vomiting, Fever over 101 Degrees, Unusual Bleeding, Redness, Swelling, Warmth, Wheezing, IV Site Infection Signs, Urinary Infection Signs
[2018-09-25 16:32] VITALS: BP 119/66
== END 2018-09-25 17:36 | disposition home or self-care (01) ==
LOC: OROUT 06:50 → 2N 12:24 → OROUT 09-25 17:36
PROVIDERS: ATTEND Surgery
DX: N80.6 Endometriosis in cutaneous scar (principal); E66.9 Obesity, unspecified; G35 Multiple sclerosis; F41.9 Anxiety disorder, unspecified; F32.9 Major depressive disorder, single episode, unspecified; G50.0 Trigeminal neuralgia; F17.210 Nicotine dependence, cigarettes, uncomplicated; Z79.899 Other long term (current) drug therapy; Z68.30 Body mass index [BMI] 30.0-30.9, adult
CPT/HCPCS: 0437T; 22903; 36415; 80048; 81025; 840; 85025; 85027; 88305; 88331; 94799; C1781; J0131; J0690; J1100; J1170; J1885; J2250; J2405; J2704; J3010; J3490; S0028; S0119

== ENCOUNTER 2018-09-26 12:47 | Inpatient (IN) | payer OTHER, MEDICAID ==
[2018-09-26] MEDS ORDERED: FENTANYL CITRATE INJ/PF 100 MCG/2 ML AMPUL IV ONE (13:11)
[2018-09-26] MEDS ORDERED: ONDANSETRON HCL INJ/PF 4 MG/2 ML SDV IV ONE (13:11)
--- NOTE | 2018-09-26 13:16 | ER Document Report ---
ED Medical Screen (RME) - General Chief Complaint: Post Surgical Pain Stated Complaint: VOMITING Time Seen by Provider: 09/26/18 13:10 Notes: Patient is here for abdominal pain and vomiting. She says that she was admitted to this hospital for surgery day before yesterday, . Reviewing the records says that she had a an abdominal wall mass removed. She was kept here until last night when she was discharged. She says that since she went home, she has vomited 9 times since about midnight. Has not had a bowel movement since her surgery. Does not have a fever. Patient has had previous abdominal surgeries for C-sections. She has had her tubes tied. Patient has multiple sclerosis. No known allergies. TRAVEL OUTSIDE OF THE [place] IN LAST 30 DAYS: No - Related Data Allergies/Adverse Reactions: nut - unspecified Adverse Reaction (Severe, Verified 09/16/18 13:17) Anaphylaxis METAL Allergy (Uncoded 09/16/18 13:12) Past Medical History - Social History Chew tobacco use (# tins/day): No Frequency of alcohol use: None Drug Abuse: None - Past Medical History Cardiac Medical History: Denies: Hx Coronary Artery Disease, Hx Heart Attack, Hx Hypertension Pulmonary Medical History: Reports: Hx Asthma - A CHILD Denies: Hx Bronchitis, Hx COPD, Hx Pneumonia Neurological Medical History: Reports: Hx Migraine. Denies: Hx Cerebrovascular Accident, Hx Seizures Renal/ Medical History: Denies: Hx Peritoneal Dialysis GI Medical History: Reports: Hx Gastroesophageal Reflux Disease - RSD Musculoskeltal Medical History: Denies Hx Arthritis, Reports Hx Fibromyalgia, Reports Hx Muscle Spasm, Reports Hx Musculoskeletal Deformity, Reports Hx Musculoskeletal Trauma Psychiatric Medical History: Reports: Hx Depression Past Surgical History: Reports: Hx Section, Hx Tubal Ligation - Immunizations Immunizations up to date: Yes Hx Diphtheria, Pertussis, Tetanus Vaccination: Yes History of Influenza Vaccine for 06/2017 - 11/2017 Season: No Doctor's Discharge - Discharge [facility]errals: [facility] [[facility]] - Follow up as needed
[2018-09-26] MEDS: NORMAL SALINE 1000 ML 1,000 ML IV PRN ×3 (13:39→17:17)
--- NOTE | 2018-09-26 13:54 | ER Document Report ---
ED General - General Chief Complaint: Post Surgical Pain Stated Complaint: VOMITING Time Seen by Provider: 09/26/18 13:10 Notes: Patient is a 38-year-old female who presents to the emergency department with a chief complaint of abdominal pain. She is postop day 2 for endometriosis. She was discharged last night. She has a SAGE drain to her right lower abdomen. She states that she has not taken her temperature, but feels like she has a "fever" on the inside of her body. She states nothing makes the pain better. She has also had some associated vomiting. Her pain radiates to her back. She has not had a bowel movement in the past 3 days. She has a past medical history of multiple sclerosis. TRAVEL OUTSIDE OF THE [place] IN LAST 30 DAYS: No - Related Data Allergies/Adverse Reactions: nut - unspecified Adverse Reaction (Severe, Verified 09/16/18 13:17) Anaphylaxis METAL Allergy (Uncoded 09/16/18 13:12) Past Medical History - Social History Smoking Status: Current Every Day Smoker Chew tobacco use (# tins/day): No Frequency of alcohol use: None Drug Abuse: None Family History: Reviewed & Not Pertinent Patient has suicidal ideation: No Patient has homicidal ideation: No - Past Medical History Cardiac Medical History: Denies: Hx Coronary Artery Disease, Hx Heart Attack, Hx Hypertension Pulmonary Medical History: Reports: Hx Asthma - A CHILD Denies: Hx Bronchitis, Hx COPD, Hx Pneumonia Neurological Medical History: Reports: Hx Migraine. Denies: Hx Cerebrovascular Accident, Hx Seizures Renal/ Medical History: Denies: Hx Peritoneal Dialysis GI Medical History: Reports: Hx Gastroesophageal Reflux Disease - RSD Musculoskeletal Medical History: Denies Hx Arthritis, Reports Hx Fibromyalgia, Reports Hx Muscle Spasm, Reports Hx Musculoskeletal Deformity, Reports Hx Musculoskeletal Trauma Psychiatric Medical History: Reports: Hx Depression Past Surgical History: Reports: Hx Section, Hx Tubal Ligation - Immunizations Immunizations up to date: Yes Hx Diphtheria, Pertussis, Tetanus Vaccination: Yes Review of Systems - Review of Systems Notes: REVIEW OF SYSTEMS: CONSTITUTIONAL : Denies recent illness. Denies recent unintentional weight loss. Denies fever, chills, or sweats. EENT: Denies eye, ear, throat, or mouth pain, discharge, or symptoms. Denies nasal or sinus congestion. CARDIOVASCULAR: Denies chest pain. RESPIRATORY: Denies shortness of breath, cough, congestion, difficulty breathing, or wheezing. GASTROINTESTINAL: See HPI GENITOURINARY: Denies difficulty urinating, burning, blood in urine, urgency or frequency. MUSCULOSKELETAL: Denies neck and back pain. Denies joint pain or swelling. SKIN: Denies rash, itchiness, or lesions HEMATOLOGIC : Denies easy bruising or bleeding. LYMPHATIC: Denies swollen, painful, enlarged glands. NEUROLOGICAL: Denies no numbness or tingling denies weakness. Denies headache. Denies altered mental status. Denies alteration in speech. PSYCHIATRIC: Denies stress, anxiety, alteration in sleep patterns, or depression. All other systems reviewed and negative. Physical Exam - Vital signs Vitals: Temp Pulse Resp BP Pulse Ox 99.1 F 116 H 20 146/84 H 97 09/26/18 14:49 09/26/18 14:49 09/26/18 14:49 09/26/18 14:49 09/26/18 14:49 - Notes Notes: PHYSICAL EXAMINATION: GENERAL: Appears well, healthy, well-nourished, no acute distress. HEAD: Normocephalic, atraumatic. EYES: PERRL, conjunctiva normal, all extraocular movements intact, sclera nonicteric ENT: Moist mucous membranes. NECK: Supple, no noticeable swelling, redness, rash. Normal range of motion. LUNGS: Equal breath sounds bilaterally and clear to auscultation. No wheezes rales or rhonchi. CARDIOVASCULAR: S1-S2, tachycardic, regular rhythm. Radial pulses 2+, normal. ABDOMEN: Hypoactive bowel sounds. Very tender lower abdomen, firm to touch. SAGE drain noted to right lower quadrant. EXTREMITIES: Normal strength and range of motion, no pitting or edema. No cyanosis. NEUROLOGICAL: Moves all extremities upon command. Strength 5/5 in all extremities. PSYCH: Normal mood, normal affect. SKIN: Warm, dry. No rash, lesions, ulcerations noted. Normal skin turgor. Course - Re-evaluation Re-evalutation: 09/26/18 13:45 Patient was seen in triage and started with a IV bolus and IV pain medication. She states that she does feel little better with the pain medicine but still has diffuse abdominal pain. Her lower abdomen is distended. I will contact the surgeon vendor relationship manager in regards to her being here in the emergency department. 09/26/18 14:20 Patient's white blood cell count has increased to 22,000 from 21,000 yesterday. Her chemistries are unremarkable. Dr. Ortega, the surgeon vendor relationship manager, is aware that the patient is here in the emergency department and he wants to hold off on CT of the abdomen first. He states that she was not very mobile here in the hospital when she was admitted. He has ordered a chest x-ray to rule out pneumonia. 09/26/18 15:34 Dr. Ortega has agreed to admit the patient. He has been in and out of the room assessing her and evaluating her care. He has started her on vancomycin and Zosyn. She will be started on treatment for sepsis. She does have infiltrates noted on her x-ray, indicative of pneumonia. This may be the cause of her sepsis. 09/26/18 16:20 Patient's abdominal series shows constipation and gas patterns. This is most consistent with her history of not having a bowel movement for the past 3 days. She will be managed inpatient with Dr. Ortega. He has excepted admission. - Vital Signs Vital signs: Temp Pulse Resp BP Pulse Ox 98.4 F 105 H 18 143/83 H 99 09/26/18 19:55 09/26/18 19:55 09/26/18 19:55 09/26/18 19:55 09/26/18 19:55 - Laboratory Result Diagrams: 09/26/18 13:21 09/26/18 13:21 Laboratory results interpreted by me: 09/26/18 09/26/18 09/26/18 13:21 13:21 15:12 WBC 22.2 H RBC 5.46 H MCV 77 L MCH 26.7 L RDW 14.3 H Seg Neuts % (Manual) 88 H Lymphocytes % (Manual) 6 L Abs Neuts (Manual) 19.5 H Chloride 97 L Glucose 133 H Urine Protein 100 H Urine Blood MODERATE H Discharge - Discharge Clinical Impression: Postoperative pain, Sepsis Condition: Stable Disposition: ADMITTED INPATIENT Admitting Provider: Surgicalist Unit Admitted: Surgical Floor
[2018-09-26 14:00] LABS: ALANINE AMINOTRANSFERASE 12 U/L (9-52); ALBUMIN 4.3 g/dL (3.5-5.0); ALKALINE PHOSPHATASE 104 U/L (38-126); ANION GAP 13 (5-19); ASPARTATE AMINO TRANSFERASE 21 U/L (14-36); BILIRUBIN,DIRECT 0.3 mg/dL (0.0-0.4); BLOOD UREA NITROGEN 19 mg/dL (7-20); CALCIUM 9.7 mg/dL (8.4-10.2); CARBON DIOXIDE 29 mmol/L (22-30); CHLORIDE 97 mmol/L (98-107); GLUCOSE 133 mg/dL (75-110); LIPASE 25.3 U/L (23-300); POTASSIUM 4.3 mmol/L (3.6-5.0); SODIUM 138.5 mmol/L (137-145)
[2018-09-26 14:16] LABS: HEMATOCRIT 41.8 % (36.0-47.0); MEAN CORPUSCULAR HEMOGLOBIN 26.7 pg (27.0-33.4); MEAN CORPUSCULAR HGB CONC 34.8 g/dL (32.0-36.0); MEAN CORPUSCULAR VOLUME 77 fl (80-97); PLATELET COUNT 414 10^3/uL (150-450); RED BLOOD COUNT 5.46 10^6/uL (3.72-5.28); RED CELL DISTRIBUTION WIDTH 14.3 % (11.5-14.0); WHITE BLOOD COUNT 22.2 10^3/uL (4.0-10.5)
[2018-09-26 14:35] LABS: HEMOGLOBIN 14.6 g/dL (12.0-15.5)
[2018-09-26] MEDS ORDERED: PANTOPRAZOLE SODIUM 40 MG VIAL IV ONE (14:35)
[2018-09-26 14:39] LABS: ABSOLUTE LYMPHOCYTES# (MANUAL) 1.3 10^3/uL (0.5-4.7); ABSOLUTE MONOCYTES # (MANUAL) 1.3 10^3/uL (0.1-1.4); ABSOLUTE NEUTROPHILS# (MANUAL) 19.5 10^3/uL (1.7-8.2); BASOPHILS % (MANUAL) 0 % (0-2); EOSINOPHILS % (MANUAL) 0 % (0-6); LYMPHOCYTES % (MANUAL) 6 % (13-45); MONOCYTES % (MANUAL) 6 % (3-13); SEGMENTED NEUTROPHILS % (MAN) 88 % (42-78); TOTAL CELLS COUNTED 100
[2018-09-26 14:40] LABS: ANISOCYTOSIS SLIGHT; PLATELET COMMENT ADEQUATE; POLYCHROMASIA SLIGHT
--- NOTE | 2018-09-26 15:08 | PDOC H&P ---
History of Present Illness Admission Date/PCP: 09/26/18 [facility] Patient complains of: Nausea and vomiting History of Present Illness: REX ORELLANA is a 38 year old female with multiple sclerosis since 2001, poor lower extremity motility, partial urinary bladder incontinence, POD#2 after excision of anterior abdominal wall endometrioma with reconstruction by absorbable mesh and drain subcutaneous drain placement. Procedure uneventful according to record and patient discharged to home yesterday evening i satisfactory conditions. She called the answering this AM c/o severe nausea, multiple (nine) episodes of vomiting (bilious) throughout the night with no improvement, abdominal distention, constipation. She denies abdominal pain, but she feesl uncomfortable because of the abdominal distention. She has low grade fever (99.1) and tachycardia (116) Past Medical History Cardiac Medical History: Denies: Coronary Artery Disease, Myocardial Infarction, Hypertension Pulmonary Medical History: Reports: Asthma - A CHILD Denies: Bronchitis, Chronic Obstructive Pulmonary Disease (COPD), Pneumonia Neurological Medical History: Reports: Migraine Denies: Seizures GI Medical History: Reports: Gastroesophageal Reflux Disease - RSD Musculoskeltal Medical History: Reports: Fibromyalgia Denies: Arthritis Psychiatric Medical History: Reports: Depression Hematology: Reports: Anemia - SICKLE CELL TRAIT Past Surgical History Past Surgical History: Reports: Section, Tubal Ligation, Other - excisin of abdominal wall endometriosis with absorbable mesh Social History Smoking Status: Current Every Day Smoker Frequency of Alcohol Use: Heavy - See history of present illness Hx Recreational Drug Use: No Drugs: None Hx Prescription Drug Abuse: No Family History Family History: Reviewed & Not Pertinent Parental Family History Reviewed: No Children Family History Reviewed: No Sibling(s) Family History Reviewed.: No Medication/Allergy Home Medications: Pregabalin [Lyrica 50 mg Capsule] 150 mg PO Q8 11/07/13 Baclofen [Baclofen 20 mg Tablet] 20 mg PO Q8 09/16/18 Oxycodone HCl/Acetaminophen [Percocet 5-325 mg Tablet] 1 - 2 tab PO Q4 PRN 09/25/18 Allergies/Adverse Reactions: nut - unspecified Adverse Reaction (Severe, Verified 09/16/18 13:17) Anaphylaxis METAL Allergy (Uncoded 09/16/18 13:12) Physical Exam Vital Signs: Intake & Output 09/25/18 09/26/18 09/27/18 06:59 06:59 06:59 Output Total 55 Balance -55 General appearance: PRESENT: mild distress, obese, other - somnolent Head exam: PRESENT: atraumatic Eye exam: PRESENT: EOMI Mouth exam: PRESENT: dry mucosa, neck supple Neck exam: PRESENT: full ROM Respiratory exam: PRESENT: clear to auscultation myla Cardiovascular exam: PRESENT: RRR GI/Abdominal exam: PRESENT: distended - not tender, hypoactive bowel sounds, soft, other - wound C/D/I, no drainage, no erythema; presence of SAGE drain in the right lateral quadrant with serosanguinous fluid Neurological exam: PRESENT: alert, awake, other - emeli;l upper extremity ROM, paraparesis Psychiatric exam: PRESENT: appropriate affect Skin exam: PRESENT: warm - incision C/D/I Results Laboratory Results: 09/26/18 13:21 09/26/18 09/26/18 13:21 13:21 Sodium 138.5 Potassium 4.3 Chloride 97 L Carbon Dioxide 29 Anion Gap 13 BUN 19 Creatinine 0.79 Est GFR ( Amer) > 60 Est GFR (Non-Af Amer) > 60 Glucose 133 H Calcium 9.7 Total Bilirubin 1.0 AST 21 ALT 12 Alkaline Phosphatase 104 Total Protein 8.0 Albumin 4.3 Lipase 25.3 Serum HCG, Qual NEGATIVE Assessment & Plan - Diagnosis (1) Leukocytosis, unspecified Is this a current diagnosis for this admission?: Yes Plan: A/ POD#2 after excision of anterior abdominal wall endometrioma with abdominal wall reconstruction with extraperitoneal absorbable mesh and drain placement patient discharged yesterday in satisfactory conditions Severe postoperative N/V with bilious material (overnight) Low grade temperature (99.1) and tachycardia Sleepy but arousable WBC 22K patient has no c/o abdominal pain except for constipation and distention HGer PE only shows distention with lower abdominal incision c/d/i and serousanguinous fluid filled drain Multiple sclerosis with partial urinary incontinence and paraparesis Every day smoker P/ Aggressive IV hydration (2L bolus, then NS 150 mL/hr) Insert Alcazar catheter Send urine for UA/culture Chest Xray portable Blood culture x 2 Admit NPO Vancomycin 1 gr IVPB now Zosyn 3.375 gr IVPB now and q6 CT scan A/P if the above tests (UA and Chest Xray) are negative
[2018-09-26] MEDS ORDERED: PIPERACILLIN/TAZOBACTAM 3.375 GM VIAL IV STA (15:09)
[2018-09-26] MEDS ORDERED: VANCOMYCIN HCL INJ 1000 MG VIAL IV ONE (15:09)
[2018-09-26] MEDS ORDERED: ONDANSETRON HCL INJ/PF 4 MG/2 ML SDV IV PRN (15:13)
--- NOTE | 2018-09-26 15:17 | RADIOLOGY REPORT (SQ) ---
EXAM DESCRIPTION: CHEST 2 VIEWS COMPLETED DATE/TIME: 09/26/2018 2:58 pm REASON FOR STUDY: Rule Out Pneumonia COMPARISON: 06/21/2016 TECHNIQUE: Frontal and lateral radiographic views of the chest acquired. NUMBER OF VIEWS: Two view. LIMITATIONS: None. FINDINGS: LUNGS AND PLEURA: No pneumothorax. Bilateral basilar airspace opacities suggesting subseg mental atelectasis. No pleural effusion. MEDIASTINUM AND HILAR STRUCTURES: Stable. HEART AND VASCULAR STRUCTURES: Stable. BONES: No acute findings. HARDWARE: None in the chest. OTHER: No other significant finding. IMPRESSION: Bilateral basilar airspace opacities suggesting subsegmental atelectasis. No pleural ef fusion. Follow-up recommended if concern for developing consolidation. TECHNICAL DOCUMENTATION: JOB ID: [id number] [place]-72 2010 [employer]- All Rights Reserved Reading location - IP/workstation name: [employer]
[2018-09-26 15:33] LABS: APPEARANCE,URINE SLIGHTLY-CLOUDY; BILIRUBIN,URINE NEGATIVE (NEGATIVE); COLOR,URINE AMBER; GLUCOSE, URINE NEGATIVE (NEGATIVE); KETONES,URINE NEGATIVE (NEGATIVE); LEUKOCYTE ESTERASE,URINE NEGATIVE (NEGATIVE); NITRITE,URINE NEGATIVE (NEGATIVE); PROTEIN,URINE 100 mg/dL (NEGATIVE); URINE SPECIFIC GRAVITY 1.033; UROBILINOGEN,URINE NEGATIVE mg/dL (<2.0)
[2018-09-26] MEDS ORDERED: FAMOTIDINE INJ/PF 20 MG/2 ML SDV IV SCH (16:30)
[2018-09-26] MEDS: PIPERACILLIN SODIUM/TAZOBACTAM 3.375 GM in NORMAL SALINE 100 ML IV SCH ×2 (16:34→20:59)
--- NOTE | 2018-09-26 16:41 | RADIOLOGY REPORT (SQ) ---
EXAM DESCRIPTION: ABDOMEN 2 VIEWS COMPLETED DATE/TIME: 09/26/2018 4:19 pm REASON FOR STUDY: abdominal distention, constipation, leukocytosis COMPARISON: 09/09/2018 NUMBER OF VIEWS: Two views. TECHNIQUE: Supine and erect/decubitus radiographic images of the abdomen acquired. LIMITATIONS: None. FINDINGS: FREE AIR: None. No abnormal gas collections. LUNG BASES: Clear. BOWEL GAS PATTERN: Few scattered small bowel loops with air fluid levels. Possibly mildly distended small bowel loops versus colonic gas on this supine projections. CALCIFICATIONS: No suspicious calcifications. SOFT TISSUES: No gross mass or suggestion of organomegaly. HARDWARE: None in the abdomen. BONES: No acute fracture. No worrisome bone lesions. OTHER: No other significant finding. IMPRESSION: NON-SPECIFIC BOWEL GAS PATTERN .Few scattered small bowel loops with air fluid levels. Possibly mildly distended small bowel loops versus colonic gas on this supine projections. Follow-up if concern for developing obstruction. TECHNICAL DOCUMENTATION: JOB ID: [id number] [place]-72 2010 [employer]- All Rights Reserved Reading location - IP/workstation name: [email or web address]
[2018-09-26] MEDS ORDERED: HYDROMORPHONE HCL INJ/PF 2 MG/ML AMPULE IV ONE (16:57)
[2018-09-26] MEDS: VANCOMYCIN HCL 1,250 MG in DEXTROSE 5%-WATER 250 ML IV SCH (17:17)
[2018-09-26] MEDS ORDERED: PIPERACILLIN/TAZOBACTAM 3.375 GM VIAL IV ONE (20:40)
[2018-09-26] MEDS ORDERED: HEPARIN SOD (PORCINE) 5,000 UNIT/ML 1 ML SYRINGE SUBCUT SCH (22:00)
[2018-09-26] MEDS: MORPHINE SULFATE 10 MG/ML INJ IV PRN (22:00)
--- NOTE | 2018-09-26 23:27 | RADIOLOGY REPORT (SQ) ---
EXAM DESCRIPTION: CT ABDOMEN PELVIS WITH IV CONTRAST COMPLETED DATE/TME: 09/26/2018 00:00 CLINICAL HISTORY: 38 years Female, Post op abdominal distention Comparison: 09/09/18 Technique: IV contrast. Coronal and sagittal reformat. This exam was performed according to our departmental dose-optimization program, which includes automated exposure control, adjustment of the mA and/or kV according to patient size and/or use of iterative reconstruction technique. [facility]: Dose Right [facility]: CareDose [facility]: Dose Right [facility]: Teradose 4D [facility]: [employer] LIMITATIONS: None Findings: Small bowel obstruction pattern includes 4.3 cm diameter numerous dilated bowel loops with air-fluid levels, dilated stomach, and likely transition zone involving a small bowel umbilical hernia measuring 11 cm. The hernia includes a drainage catheter. Decompressed bowel Moderate free pelvic fluid. Trace right pleural effusion. Atelectasis/scar. Alcazar catheter. Inferior thorax, liver, gallbladder, pancreas, spleen, adrenals, renal system, pelvic organs, lymphatics, vasculature, and musculoskeleton appear otherwise unremarkable. IMPRESSION: Moderate grade small bowel obstruction probably due to an 11 cm small bowel umbilical hernia Critical results reporting: Findings discussed with JOLYNN SHANKAR MD, immediately following interpretation of the examination on 09/26/2018 10:25 PM DRAPERY COUNSELOR.
--- NOTE | 2018-09-26 23:38 | Progress Note ---
Provider Note Provider Note: Events noted: CT scan A/P done a few minutes ago shows an acutely herniated small bowel through a small anterior abdominal wall defect. Case reviewed with the Radiologist special education instructor and no evidence of bowel ischemia or free air. A/P 1) POD #2 excision of anterior abdominal wall mass (endometrioma) with reconstru ction of the anterior abdominal wall with absorbable mesh 2) leukocytosis 3) Patient has developed abdominal pain after admission 4) CT scan A/P shows an acute small bowel herniation, no evidence of bowel ischemia or free air Plan: Emergent repair of acute postsurgical ventral hernia, with laparotomy, possible bowel resection. Procedure, risks, benefits, complications, alternatives discussed with the patient, her questions have been answered, and she has decided to proceed.
[2018-09-27] MEDS ORDERED: MIDAZOLAM 2 MG/2 ML INJ ONE (00:07)
[2018-09-27] MEDS ORDERED: FENTANYL CITRATE INJ/PF 100 MCG/2 ML AMPUL ONE ×2 (00:07→05:02)
[2018-09-27] MEDS ORDERED: PROPOFOL INJ 200 MG/20 ML VIAL IV ONE (00:08)
[2018-09-27] MEDS ORDERED: MORPHINE SULFATE 10 MG/ML INJ ONE ×2 (00:08→04:07)
[2018-09-27] MEDS ORDERED: BUPIVACAINE HCL 0.5%-EPI 1:200000 INJ/PF 30 ML VIAL ONE (00:18)
[2018-09-27] MEDS: MORPHINE SULFATE 10 MG/ML INJ IV PRN ×5 (00:19→13:47)
[2018-09-27] MEDS ORDERED: FENTANYL CITRATE INJ/PF 250 MCG/5 ML AMPULE ONE (00:37)
[2018-09-27] MEDS ORDERED: MORPHINE SULFATE 10 MG/ML INJ IV PRN (01:34)
[2018-09-27] MEDS ORDERED: PROMETHAZINE HCL INJ 25 MG/1 ML VIAL IV PRN ×2 (01:34)
[2018-09-27] MEDS ORDERED: FENTANYL CITRATE INJ/PF 100 MCG/2 ML AMPUL IV PRN ×2 (01:34)
[2018-09-27] MEDS ORDERED: DIPHENHYDRAMINE HCL 50 MG/ML VIAL IV PRN (01:34)
[2018-09-27] MEDS ORDERED: MEPERIDINE HCL/PF INJ 25 MG/1 ML DISP.SYRIN IV PRN (01:34)
[2018-09-27] MEDS ORDERED: SUGAMMADEX SODIUM 200 MG/2 ML SDV IV ONE (01:45)
[2018-09-27] MEDS ORDERED: MICROFIBRILLAR COLLAGEN 1 GM PACK ONE ×2 (02:58)
[2018-09-27] MEDS ORDERED: PIPERACILLIN/TAZOBACTAM 3.375 GM VIAL IV ONE (03:20)
--- NOTE | 2018-09-27 04:54 | Operative Report ---
Nonrecallable Operative Report DATE OF SURGERY: 09/27/18 PREOPERATIVE DIAGNOSIS: acute incarcerated postoperative ventral hernia POSTOPERATIVE DIAGNOSIS: same. strangulated bowel. small bowel perforation. mechanical small bowel obstruction OPERATION: exploratory laparotomy. small bowel resection. bilateral componend separation. open ventral herniorraphy with absorbable mesh SURGEON: JOLYNN SHANKAR ANESTHESIA: GA - pluds local 0.% marcaie TISSUE REMOVED OR ALTERED: ischemic and perforated small bowel COMPLICATIONS: none ESTIMATED BLOOD LOSS: 150 mL INTRAOPERATIVE FINDINGS: acute herniated small bowel via surgical fascial defect. small bowel loop ischenic and perforated. large defect of the anterior rectus sheath PROCEDURE: see dictation
[2018-09-27] MEDS ORDERED: PHARMACY COMMUNICATION ORDER MC NR (05:00)
[2018-09-27] MEDS: FENTANYL CITRATE INJ/PF 100 MCG/2 ML AMPUL IV PRN ×2 (05:02→05:15)
[2018-09-27] MEDS ORDERED: ACETAMINOPHEN 1,000 MG/100 ML RTUPB IV ONE (07:30)
[2018-09-27 07:37] LABS: ANION GAP 5 (5-19); BLOOD UREA NITROGEN 15 mg/dL (7-20); CALCIUM 7.8 mg/dL (8.4-10.2); CARBON DIOXIDE 27 mmol/L (22-30); CHLORIDE 102 mmol/L (98-107); GLUCOSE 111 mg/dL (75-110); SODIUM 133.9 mmol/L (137-145)
[2018-09-27 07:38] LABS: ABSOLUTE MONOCYTES (AUTO) 0.9 10^3/uL (0.1-1.4); ABSOLUTE NEUT (AUTO) 7.5 10^3/uL (1.7-8.2); BASOPHILS % (AUTO) 0.3 % (0-2); EOSINOPHILS % (AUTO) 0.3 % (0-6); HEMATOCRIT 34.2 % (36.0-47.0); LYMPHOCYTES % (AUTO) 10.7 % (13-45); MEAN CORPUSCULAR HEMOGLOBIN 26.9 pg (27.0-33.4); MEAN CORPUSCULAR HGB CONC 35.1 g/dL (32.0-36.0); MEAN CORPUSCULAR VOLUME 77 fl (80-97); MONOCYTES % (AUTO) 9.5 % (3-13); PLATELET COUNT 325 10^3/uL (150-450); RED BLOOD COUNT 4.45 10^6/uL (3.72-5.28); RED CELL DISTRIBUTION WIDTH 14.6 % (11.5-14.0); SEGMENTED NEUTROPHILS % (AUTO) 79.2 % (42-78); TOTAL CELLS COUNTED % (AUTO) 100 %; WHITE BLOOD COUNT 9.5 10^3/uL (4.0-10.5)
[2018-09-27] MEDS: PIPERACILLIN SODIUM/TAZOBACTAM 3.375 GM in NORMAL SALINE 100 ML IV SCH ×3 (08:42→17:42)
[2018-09-27] MEDS: VANCOMYCIN HCL 1,250 MG in DEXTROSE 5%-WATER 250 ML IV SCH ×2 (09:25→21:43)
[2018-09-27] MEDS: FAMOTIDINE INJ/PF 20 MG/2 ML SDV IV SCH ×2 (09:25→21:41)
[2018-09-27] MEDS ORDERED: ONDANSETRON HCL INJ/PF 4 MG/2 ML SDV ONE (10:15)
[2018-09-27] MEDS ORDERED: ROCURONIUM BROMIDE INJ 50 MG/5 ML VIAL IV ONE (10:15)
[2018-09-27] MEDS: ACETAMINOPHEN 1,000 MG/100 ML RTUPB IV SCH ×2 (11:27→17:08)
[2018-09-27] MEDS: BACLOFEN 20 MG TABLET PO SCH ×2 (14:15→21:44)
--- NOTE | 2018-09-27 16:21 | PDOC PROGRESS REPORT ---
Subjective Progress Note for:: 09/27/18 Subjective:: patient c/o incisional pain Reason For Visit: SEPSIS Physical Exam Vital Signs: Temp Pulse Resp BP Pulse Ox 98.8 F 116 H 17 121/68 99 09/27/18 09:55 09/27/18 09:55 09/27/18 09:55 09/27/18 09:55 09/27/18 09:55 Intake & Output 09/26/18 09/27/18 09/28/18 06:59 06:59 06:59 Intake Total 67992 100 Output Total 6525 Balance 3975 100 Weight 81.647 kg General appearance: PRESENT: no acute distress Respiratory exam: PRESENT: clear to auscultation myla GI/Abdominal exam: PRESENT: soft Results Laboratory Results: 09/27/18 06:49 09/27/18 06:49 09/27/18 09/27/18 09/27/18 00:32 06:49 06:49 WBC 9.5 RBC 4.45 Hgb 12.0 D Hct 34.2 L MCV 77 L MCH 26.9 L MCHC 35.1 RDW 14.6 H Plt Count 325 Seg Neutrophils % 79.2 H Lymphocytes % 10.7 L Monocytes % 9.5 Eosinophils % 0.3 Basophils % 0.3 Absolute Neutrophils 7.5 Absolute Lymphocytes 1.0 Absolute Monocytes 0.9 Absolute Eosinophils 0.0 Absolute Basophils 0.0 Sodium 133.9 L Potassium 4.0 Chloride 102 Carbon Dioxide 27 Anion Gap 5 BUN 15 Creatinine 0.73 Est GFR ( Amer) > 60 Est GFR (Non-Af Amer) > 60 Glucose 111 H Calcium 7.8 L Blood Type O POSITIVE Antibody Screen NEGATIVE Impressions: Abdomen X-Ray 09/26/18 00:00 IMPRESSION: NON-SPECIFIC BOWEL GAS PATTERN .Few scattered small bowel loops with air fluid levels. Possibly mildly distended small bowel loops versus colonic gas on this supine projections. Follow-up if concern for developing o bstruction. Abdomen/Pelvis CT 09/26/18 00:00 IMPRESSION: Moderate grade small bowel obstruction probably due to an 11 cm small bowel umbilical hernia Critical results reporting: Findings discussed with JOLYNN SHANKAR MD, immediately following interpretation of the examination on 09/26/2018 10:25 PM INVISIBLE BRACES ORTHODONTIST. Chest X-Ray 09/26/18 00:00 IMPRESSION: Bilateral basilar airspace opacities suggesting subsegmental atelectasis. No pleural effusion. Follow-up recommended if concern for developing consolidation. Assessment & Plan - Diagnosis (1) Leukocytosis, unspecified Is this a current diagnosis for this admission?: Yes - Plan Summary Plan Summary: A/ POD#0 after emergent repair strangulated incional hernia with small bowel resection, bilateral component separation, ventral herniorraphy with absorbable mesh patient c/o incisional pain UO adequate (500 mL since 6 AM) NGT @ 500 since after surgery WBC normalized (9.5K, down from 22K preop) H/H slightly decreased, most likely dilutional v. minimal surgery blood loss (, respectively) BMP WNL PE overall unremarkable Toradol, drain bulb suction, and subcutaneous heparin on hold for first 24 hrs fater surgery, to minimize the chances of subcutaneous bulb bleeding P/ NS 1 L bolus, then continue NS 150 mL/hr Continue NPO, NGT, IV Abx (Vanco/Zosyn) Waiting for Cx results (urine, blood cx) Stop morphine and start Dilaudid for improved pain control Tomorrow, both drains can be placed on bulb suction Start heparin subcutaneous tomorrow as well as Toradol prn for pain control
[2018-09-27] MEDS ORDERED: NORMAL SALINE 1000 ML 1,000 ML IV ONE (16:30)
[2018-09-27] MEDS: HYDROMORPHONE HCL INJ/PF 2 MG/ML AMPULE IV PRN ×3 (16:33→21:41)
[2018-09-27] MEDS: NORMAL SALINE 1000 ML 1,000 ML IV PRN (17:09)
[2018-09-27] MEDS ORDERED: BACLOFEN 20 MG TABLET NG ONE (23:00)
[2018-09-28] MEDS: ACETAMINOPHEN 1,000 MG/100 ML RTUPB IV SCH ×4 (00:39→17:38)
[2018-09-28] MEDS: MORPHINE SULFATE 10 MG/ML INJ IV PRN ×3 (00:41→04:29)
[2018-09-28] MEDS: PIPERACILLIN SODIUM/TAZOBACTAM 3.375 GM in NORMAL SALINE 100 ML IV SCH ×4 (00:58→18:17)
[2018-09-28] MEDS: NORMAL SALINE 1000 ML 1,000 ML IV PRN ×3 (04:28→22:31)
[2018-09-28] MEDS: BACLOFEN 20 MG TABLET NG SCH ×3 (05:11→22:31)
[2018-09-28 07:02] LABS: HEMATOCRIT 29.5 % (36.0-47.0); HEMOGLOBIN 10.6 g/dL (12.0-15.5); MEAN CORPUSCULAR HEMOGLOBIN 27.2 pg (27.0-33.4); MEAN CORPUSCULAR HGB CONC 35.8 g/dL (32.0-36.0); MEAN CORPUSCULAR VOLUME 76 fl (80-97); PLATELET COUNT 332 10^3/uL (150-450); RED BLOOD COUNT 3.89 10^6/uL (3.72-5.28); RED CELL DISTRIBUTION WIDTH 14.1 % (11.5-14.0); WHITE BLOOD COUNT 9.7 10^3/uL (4.0-10.5)
[2018-09-28 07:33] LABS: ANION GAP 8 (5-19); BLOOD UREA NITROGEN 14 mg/dL (7-20); CALCIUM 7.8 mg/dL (8.4-10.2); CARBON DIOXIDE 27 mmol/L (22-30); CHLORIDE 100 mmol/L (98-107); GLUCOSE 99 mg/dL (75-110); POTASSIUM 3.6 mmol/L (3.6-5.0); SODIUM 134.7 mmol/L (137-145)
[2018-09-28 07:56] LABS: ABSOLUTE LYMPHOCYTES# (MANUAL) 1.6 10^3/uL (0.5-4.7); ABSOLUTE MONOCYTES # (MANUAL) 0.9 10^3/uL (0.1-1.4); BASOPHILS % (MANUAL) 0 % (0-2); EOSINOPHILS % (MANUAL) 2 % (0-6); HYPOCHROMASIA SLIGHT; LYMPHOCYTES % (MANUAL) 17 % (13-45); MONOCYTES % (MANUAL) 9 % (3-13); OVALOCYTES 1+; PLATELET CLUMPS PRESENT; POIKILOCYTOSIS 1+; POLYCHROMASIA SLIGHT; ROULEAUX 1+; SEGMENTED NEUTROPHILS % (MAN) 56 % (42-78); TARGET CELLS SLIGHT; TOTAL CELLS COUNTED 100; TOXIC GRANULATION 1+; TOXIC VACUOLATION PRESENT
[2018-09-28 08:00] LABS: BAND NEUTROPHILS % (MANUAL) 16 % (3-5)
--- NOTE | 2018-09-28 08:12 | PDOC PROGRESS REPORT ---
Subjective Progress Note for:: 09/28/18 Subjective:: post op exploratory lap for ventral hernia Reason For Visit: SEPSIS Physical Exam Vital Signs: Temp Pulse Resp BP Pulse Ox 98.1 F 106 H 18 135/81 H 99 09/28/18 04:29 09/28/18 04:29 09/28/18 04:29 09/28/18 04:29 09/28/18 04:29 Intake & Output 09/27/18 09/28/18 09/29/18 06:59 06:59 06:59 Intake Total 13078 2100 Output Total 6645 725 Balance 4855 1375 Weight 81.647 kg GI/Abdominal exam: PRESENT: distended - abd distended, few bs thien serous wound clean Results Laboratory Results: 09/28/18 06:34 09/28/18 06:34 09/28/18 09/28/18 06:34 06:34 WBC 9.7 RBC 3.89 Hgb 10.6 L Hct 29.5 L MCV 76 L MCH 27.2 MCHC 35.8 RDW 14.1 H Plt Count 332 Seg Neutrophils % Not Reportable Lymphocytes % Not Reportable Monocytes % Not Reportable Eosinophils % Not Reportable Basophils % Not Reportable Absolute Neutrophils Not Reportable Absolute Lymphocytes Not Reportable Absolute Monocytes Not Reportable Absolute Eosinophils Not Reportable Absolute Basophils Not Reportable Sodium 134.7 L Potassium 3.6 Chloride 100 Carbon Dioxide 27 Anion Gap 8 BUN 14 Creatinine 0.66 Est GFR ( Amer) > 60 Est GFR (Non-Af Amer) > 60 Glucose 99 Calcium 7.8 L Impressions: Abdomen X-Ray 09/26/18 00:00 IMPRESSION: NON-SPECIFIC BOWEL GAS PATTERN .Few scattered small bowel loops with air fluid levels. Possibly mildly distended small bowel loops versus colonic gas on this supine projections. Follow-up if concern for developing obstruction. Abdomen/Pelvis CT 09/26/18 00:00 IMPRESSION: Moderate grade small bowel obstruction probably due to an 11 cm small bowel umbilical hernia Critical results reporting: Findings discussed with JOLYNN SHANKAR MD, immediately following interpretation of the examination on 09/26/2018 10:25 PM DEBURRER. Chest X-Ray 09/26/18 00:00 IMPRESSION: Bilateral basilar airspace opacities suggesting subsegmental atel ectasis. No pleural effusion. Follow-up recommended if concern for developing consolidation. Assessment & Plan - Plan Summary Plan Summary: will start lovonox cont ng suction ice chips college administrator morphine physical rx out of bed
[2018-09-28] MEDS ORDERED: ONDANSETRON HCL INJ/PF 4 MG/2 ML SDV IV PRN (09:00)
[2018-09-28] MEDS: MORPHINE SULFATE 60 MG/60 ML RTUINJ IV PRN (10:05)
[2018-09-28] MEDS: VANCOMYCIN HCL 1,250 MG in DEXTROSE 5%-WATER 250 ML IV SCH ×2 (11:00→22:31)
[2018-09-28] MEDS: FAMOTIDINE INJ/PF 20 MG/2 ML SDV IV SCH ×2 (11:00→22:31)
[2018-09-28] MEDS: KETOROLAC TROMETHAMINE INJ/PF 30 MG/1 ML SDV IV PRN (11:22)
[2018-09-28 12:18] LABS: APPEARANCE,URINE CLEAR; BILIRUBIN,URINE SMALL (NEGATIVE); COLOR,URINE AMBER; GLUCOSE, URINE NEGATIVE (NEGATIVE); KETONES,URINE 80 mg/dL (NEGATIVE); LEUKOCYTE ESTERASE,URINE NEGATIVE (NEGATIVE); NITRITE,URINE NEGATIVE (NEGATIVE); PROTEIN,URINE 100 mg/dL (NEGATIVE); URINE SPECIFIC GRAVITY 1.039
--- NOTE | 2018-09-28 13:01 | OPERATIVE REPORT E ---
Operative Report NAME: REX ORELLANA : 1980 AGE: 38Y DATE OF SURGERY: 09/27/2018 ROOM: 208 PREOPERATIVE DIAGNOSIS: 1. ACUTE POSTOPERATIVE VENTRAL HERNIA. 2. SMALL BOWEL INCARCERATION. POSTOPERATIVE DIAGNOSIS: 1. ACUTE POSTOPERATIVE VENTRAL HERNIA. 2. SMALL BOWEL STRANGULATION WITH PERFORATION. 3. MECHANICAL SMALL BOWEL OBSTRUCTION. OPERATION: 1. Exploratory laparotomy. 2. Small bowel resection. 3. Bilateral component separation. 4. Open ventral herniorrhaphy with absorbable mesh. SURGEON: JOLYNN SHANKAR M.D. STEAM AND GAS TURBINES ASSEMBLER: None. ESTIMATED BLOOD LOSS: Less than 150 mL. COMPLICATIONS: None. FLUIDS: 5000 mL of crystalloid. URINE OUTPUT: 50. DRAINS: 2; 19-Pakistani Kenrick drains. 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 During the procedure the anterior rectus sheath of the lower abdomen was removed together with the mass because of a fascial defect. This was apparently a piece of absorbable mesh. The patient was discharged to home the following day. She presented to the emergency room on September 26, 2018, complaining of intense nausea/vomiting. On physical exam, she presented with distended abdomen. The patient underwent an urgent workup in the emergency room on the floor which revealed the presence of several loops of small bowel incarcerated in the intraabdominal wall and acute occurrence of an abdominal wall hernia. The decision was made to take the patient to surgery to undergo a major laparotomy, repair of ventral hernia, possible bowel resection. The procedure, risks, benefits, and complications explained to the patient. She understands all of the above and decided to proceed. PROCEDURE: It was done in the operating room. The patient was placed in supine position. General anesthesia was induced by endotracheal intubation. Alcazar catheter was in place. The endotracheal tube was inserted. About 25 mL of massey-colored fluid was aspirated. The abdomen was then found to be distended and this was prepped and draped in the usual fashion. A midline incision was made from about the umbilicus down to the symphysis pubis because it was felt that it would have been challenging to resect in the small bowel a paraventral hernia with a low Pfannenstiel transverse incision which was originally made. Following this, subcutaneous incision was done with Bovie and small bowel was identified. The incision was then opened. Intraperitoneal fat was opened lengthwise as well as the skin incision with Bovie. When this was accomplished, several loops of small bowel were found inside of the hernia defect and some of those were found to be ischemic. As small loops of bowel were manipulated, one was found to be perforated with spillage of gastrointestinal content. This was repaired with placement of a [id number] 2-0 Silk suture. After this was accomplished, when bowel was released even further, the hernia defect had to be enlarged in a way to allow the migration of small bowel. About 1 foot of small bowel was then resected. The resection was performed because small bowel presented with multiple areas of , one area of perforation and several areas of ischemia of the wall. Bowel clamps were placed proximal and distal to the area of planned resection. An opening was made in the mesenteric small bowel. The point of planned resection, the AGNES stapler was then inserted through the opening proximally and distally to the area of division and the small bowel was then divided. The mesentery was then divided with LigaSure and the specimen was removed from the surgical field. The proximal and distal end of the small bowel was then placed [id number] and kept in position with intramesenteric interrupted 2-0 Silk Lembert sutures. The intramesenteric corner of the stapled line were opened with Bovie and a AGNES with blue load was inserted to aid in enterostomy. The large was then temporarily closed with Allis clamps and a TA stapler with blue load was used to close the enterotomy and the staple line was enforced with interrupted Lembert 2-0 silk sutures. After this was accomplished, bowel was replaced in the peritoneal cavity which was irrigated with a total of 4 liters of warm normal saline which was fully aspirated. bilateral component separation was performed by elevating adipocutaneous skin flaps superiorly, inferiorly, and bilaterally. The lateral section was then after elevating the anterior axillary line on both sides, they continued superior and inferior about 2 inches about the end of the hernial defect and fascial opening. Bovie was used to accomplish elevation of the flaps. Once this was accomplished, the component separation was done by using Bovie. This was obtained by scoring the anterior external oblique muscle on both sides along the anterior axillary line and the then continued along the anterior rectus sheath, superiorly and inferiorly in a curvilinear fashion. A large piece of absorbable AllerMax mesh was cut to size and was secured in an inlay fashion with interrupted horizontal mattress 0-Prolene sutures. The mesh was facing peritoneal and the sutures placed sequentially. When all of the sutures were placed, the laparotomy pads within the abdominal cavity was removed. The sutures were then tied sequentially so that the mesh covered the entire defect in the fascia opening. A #1 looped PDS suture was used to close the linea alba with moderate difficulty. The patient presented with very thick abdominal wall with very little yield; however, the tension suture allowed approximation of the linea alba along the midline. The lower aspect of the abdominal wall presented with a segment of anterior rectus sheath missing, measuring approximately 5 x 2.5 cm; however, gentle pulling with the looped PDS suture allowed approximation of the fascia. At this point, 2 stab wounds were made at this point on each lower aspect of the adipocutaneous flaps. A stab wound was made and 19-Pakistani round Kenrick drain was placed in subcutaneous tissue and inside the large subcutaneous cavities. The drains were secured to the skin with 2-0 Nylon sutures. suture was then placed through the skin, anterior rectus sheath on superiorly and inferiorly in the surgical field and left untied. The subcutaneous flaps and subcutaneous tissue was irrigated with normal saline until clear. No active bleeding was noted. About 20 mL of FloSeal and 4 were used on the surgical field and spread to prevent formation of the postsurgical seroma. The drains were left to gravity suction. The subcutaneous tissue was then approximated with interrupted inverted [id number]-bc-[id number] 0 Vicryl sutures. The skin was closed with 3-0 Vicryl running subcuticular suture. Zia were placed to reinforce the initial Pfannenstiel incision which appeared to be splitting. The skin was then closed with Vicryl running subcuticular suture, Dermabond applied. The sutures were tied over rubber tubing without much tension. A large Band-Aid was applied. Patient was extubated, transferred to recovery room in satisfactory condition. DICTATING PHYSICIAN: JOLYNN SHANKAR M.D. [id number] PHY#: [id number] ID: [id number] JOB#: [id number] ACCT: [id number] cc:JOLYNN SHANKAR M.D. >
[2018-09-28 13:50] LABS: PATH REVIEW PATHOLOGIST REVIEWED
[2018-09-28] MEDS ORDERED: RINGERS SOLUTION,LACTATED 1,000 ML IV ONE (14:30)
[2018-09-28] MEDS ORDERED: ALBUMIN HUMAN 12.5 GM/50 ML RTUINJ IV ONE (16:00)
[2018-09-28] MEDS ORDERED: RINGERS SOLUTION,LACTATED 500 ML IV ONE (16:00)
[2018-09-28 16:25] LABS: ABSOLUTE EOSINOPHILS # (AUTO) 0.1 10^3/uL (0.0-0.6); ABSOLUTE LYMPHOCYTES (AUTO) 1.6 10^3/uL (0.5-4.7); ABSOLUTE MONOCYTES (AUTO) 1.2 10^3/uL (0.1-1.4); ABSOLUTE NEUT (AUTO) 6.3 10^3/uL (1.7-8.2); BASOPHILS % (AUTO) 0.2 % (0-2); EOSINOPHILS % (AUTO) 1.6 % (0-6); HEMATOCRIT 28.6 % (36.0-47.0); LYMPHOCYTES % (AUTO) 17.5 % (13-45); MEAN CORPUSCULAR HEMOGLOBIN 26.8 pg (27.0-33.4); MEAN CORPUSCULAR HGB CONC 35.1 g/dL (32.0-36.0); MEAN CORPUSCULAR VOLUME 76 fl (80-97); MONOCYTES % (AUTO) 12.7 % (3-13); PLATELET COUNT 337 10^3/uL (150-450); RED BLOOD COUNT 3.75 10^6/uL (3.72-5.28); RED CELL DISTRIBUTION WIDTH 14.3 % (11.5-14.0); TOTAL CELLS COUNTED % (AUTO) 100 %; WHITE BLOOD COUNT 9.3 10^3/uL (4.0-10.5)
[2018-09-28 16:44] LABS: ANION GAP 6 (5-19); BLOOD UREA NITROGEN 17 mg/dL (7-20); CALCIUM 7.9 mg/dL (8.4-10.2); CARBON DIOXIDE 28 mmol/L (22-30); CHLORIDE 99 mmol/L (98-107); GLUCOSE 99 mg/dL (75-110); POTASSIUM 3.4 mmol/L (3.6-5.0); SODIUM 133.1 mmol/L (137-145)
[2018-09-29] MEDS: ACETAMINOPHEN 1,000 MG/100 ML RTUPB IV SCH ×4 (00:47→17:53)
[2018-09-29] MEDS: PIPERACILLIN SODIUM/TAZOBACTAM 3.375 GM in NORMAL SALINE 100 ML IV SCH ×5 (01:11→17:54)
[2018-09-29] MEDS: BACLOFEN 20 MG TABLET PO SCH (02:53)
[2018-09-29] MEDS: VANCOMYCIN HCL 1,250 MG in DEXTROSE 5%-WATER 250 ML IV SCH ×3 (02:53→23:10)
[2018-09-29] MEDS: BACLOFEN 20 MG TABLET NG SCH ×3 (05:57→23:11)
[2018-09-29] MEDS: NORMAL SALINE 1000 ML 1,000 ML IV PRN (05:59)
[2018-09-29 08:05] LABS: ABSOLUTE EOSINOPHILS # (AUTO) 0.3 10^3/uL (0.0-0.6); ABSOLUTE MONOCYTES (AUTO) 1.1 10^3/uL (0.1-1.4); ABSOLUTE NEUT (AUTO) 6.7 10^3/uL (1.7-8.2); BASOPHILS % (AUTO) 0.3 % (0-2); EOSINOPHILS % (AUTO) 2.8 % (0-6); HEMATOCRIT 25.4 % (36.0-47.0); HEMOGLOBIN 8.9 g/dL (12.0-15.5); LYMPHOCYTES % (AUTO) 10.5 % (13-45); MEAN CORPUSCULAR HEMOGLOBIN 27.2 pg (27.0-33.4); MEAN CORPUSCULAR VOLUME 78 fl (80-97); MONOCYTES % (AUTO) 12.3 % (3-13); PLATELET COUNT 302 10^3/uL (150-450); RED BLOOD COUNT 3.26 10^6/uL (3.72-5.28); RED CELL DISTRIBUTION WIDTH 14.7 % (11.5-14.0); SEGMENTED NEUTROPHILS % (AUTO) 74.1 % (42-78); TOTAL CELLS COUNTED % (AUTO) 100 %
[2018-09-29 08:24] LABS: ANION GAP 8 (5-19); BLOOD UREA NITROGEN 20 mg/dL (7-20); CALCIUM 7.5 mg/dL (8.4-10.2); CARBON DIOXIDE 29 mmol/L (22-30); CHLORIDE 101 mmol/L (98-107); GLUCOSE 80 mg/dL (75-110); POTASSIUM 3.4 mmol/L (3.6-5.0); SODIUM 137.7 mmol/L (137-145)
[2018-09-29] MEDS: KETOROLAC TROMETHAMINE INJ/PF 30 MG/1 ML SDV IV PRN (08:42)
[2018-09-29 10:15] LABS: VANCOMYCIN,TROUGH 14.2 ug/mL (5.0-20.0)
[2018-09-29] MEDS: FAMOTIDINE INJ/PF 20 MG/2 ML SDV IV SCH ×2 (11:14→23:11)
--- NOTE | 2018-09-29 11:16 | PDOC PROGRESS REPORT ---
Subjective Progress Note for:: 09/29/18 Reason For Visit: SEPSIS post op exploratory laparotomy and repair of ventral hernia Physical Exam Vital Signs: Temp Pulse Resp BP Pulse Ox 98.6 F 77 18 122/64 97 09/29/18 07:23 09/29/18 07:23 09/29/18 07:23 09/29/18 07:23 09/29/18 07:23 Intake & Output 09/28/18 09/29/18 09/30/18 06:59 06:59 06:59 Intake Total 2300 3510 Output Total 2245 4124 Balance 55 -614 Weight 84.1 kg 98 kg General appearance: PRESENT: no acute distress Respiratory exam: PRESENT: clear to auscultation myla, unlabored GI/Abdominal exam: PRESENT: hypoactive bowel sounds, soft - incision clean dry thien serous Gentrourinary exam: PRESENT: indwelling catheter Extremities exam: PRESENT: full ROM, +1 edema Skin exam: PRESENT: dry Results Laboratory Results: 09/29/18 07:29 09/29/18 07:29 09/28/18 09/28/18 09/28/18 11:50 16:15 16:15 WBC 9.3 RBC 3.75 Hgb 10.0 L Hct 28.6 L MCV 76 L MCH 26.8 L MCHC 35.1 RDW 14.3 H Plt Count 337 Seg Neutrophils % 68.0 Lymphocytes % 17.5 Monocytes % 12.7 Eosinophils % 1.6 Basophils % 0.2 Absolute Neutrophils 6.3 Absolute Lymphocytes 1.6 Absolute Monocytes 1.2 Absolute Eosinophils 0.1 Absolute Basophils 0.0 Sodium 133.1 L Potassium 3.4 L Chloride 99 Carbon Dioxide 28 Anion Gap 6 BUN 17 Creatinine 1.04 Est GFR ( Amer) > 60 Est GFR (Non-Af Amer) 59 L Glucose 99 Lactic Acid Calcium 7.9 L Urine Color AB Urine Appearance CLEAR Urine pH 5.0 Ur Specific [place] 1.039 Urine Protein 100 H Urine Glucose (UA) NEGATIVE Urine Ketones 80 H Urine Blood MODERATE H Urine Nitrite NEGATIVE Ur Leukocyte Esterase NEGATIVE Urine WBC (Auto) 2 Urine RBC (Auto) 21 09/28/18 09/29/18 09/29/18 16:15 07:29 07:29 WBC 9.0 RBC 3.26 L Hgb 8.9 L Hct 25.4 L MCV 78 L MCH 27.2 MCHC 35.0 RDW 14.7 H Plt Count 302 Seg Neutrophils % 74.1 Lymphocytes % 10.5 L Monocytes % 12.3 Eosinophils % 2.8 Basophils % 0.3 Absolute Neutrophils 6.7 Absolute Lymphocytes 1.0 Absolute Monocytes 1.1 Absolute Eosinophils 0.3 Absolute Basophils 0.0 Sodium 137.7 Potassium 3.4 L Chloride 101 Carbon Dioxide 29 Anion Gap 8 BUN 20 Creatinine 1.51 H Est GFR ( Amer) 47 L Est GFR (Non-Af Amer) 39 L Glucose 80 Lactic Acid 1.1 Calcium 7.5 L Urine Color Urine Appearance Urine pH Ur Specific [place] Urine Protein Urine Glucose (UA) Urine Ketones Urine Blood Urine Nitrite Ur Leukocyte Esterase Urine WBC (Auto) Urine RBC (Auto) 09/26/18 15:12 Catheterized Urine Urine Culture - Final NO GROWTH 2 DAYS Impressions: Abdomen X-Ray 09/26/18 00:00 IMPRESSION: NON-SPECIFIC BOWEL GAS PATTERN .Few scattered small bowel loops with air fluid levels. Possibly mildly distended small bowel loops versus colonic gas on this supine projections. Follow-up if concern for developing o bstruction. Abdomen/Pelvis CT 09/26/18 00:00 IMPRESSION: Moderate grade small bowel obstruction probably due to an 11 cm small bowel umbilical hernia Critical results reporting: Findings discussed with JOLYNN SHANKAR MD, immediately following interpretation of the examination on 09/26/2018 10:25 PM DRAWER IN PLAIN LOOM. Chest X-Ray 09/26/18 00:00 IMPRESSION: Bilateral basilar airspace opacities suggesting subsegmental atelectasis. No pleural effusion. Follow-up recommended if concern for developing consolidation. Status: Image reviewed by me Assessment & Plan - Inpatient Certification Medical Necessity: Need Close Monitoring Due to Risk of Patient Decompensation, Need For IV Fluids - Plan Summary Plan Summary: doing better this am able to dangle at bedside creat sl elevated at 1.5 wbc wnl h/h sl decreased prob due to iv fluids will cont with ng today as well as jalloh increase activity physical rx await return of bowel function
[2018-09-30] MEDS: ACETAMINOPHEN 1,000 MG/100 ML RTUPB IV SCH ×2 (00:55→05:20)
[2018-09-30] MEDS: PIPERACILLIN SODIUM/TAZOBACTAM 3.375 GM in NORMAL SALINE 100 ML IV SCH ×4 (00:55→17:31)
[2018-09-30] MEDS: BACLOFEN 20 MG TABLET NG SCH ×3 (05:20→22:27)
[2018-09-30 06:59] LABS: HEMOGLOBIN 9.2 g/dL (12.0-15.5); MEAN CORPUSCULAR HEMOGLOBIN 27.3 pg (27.0-33.4); MEAN CORPUSCULAR HGB CONC 35.5 g/dL (32.0-36.0); MEAN CORPUSCULAR VOLUME 77 fl (80-97); PLATELET COUNT 343 10^3/uL (150-450); RED BLOOD COUNT 3.39 10^6/uL (3.72-5.28); RED CELL DISTRIBUTION WIDTH 14.1 % (11.5-14.0); WHITE BLOOD COUNT 8.8 10^3/uL (4.0-10.5)
[2018-09-30 07:22] LABS: ANION GAP 6 (5-19); BLOOD UREA NITROGEN 20 mg/dL (7-20); CALCIUM 7.4 mg/dL (8.4-10.2); CARBON DIOXIDE 27 mmol/L (22-30); CHLORIDE 105 mmol/L (98-107); GLUCOSE 85 mg/dL (75-110); POTASSIUM 3.1 mmol/L (3.6-5.0); SODIUM 138.4 mmol/L (137-145)
--- NOTE | 2018-09-30 07:27 | PDOC PROGRESS REPORT ---
Subjective Progress Note for:: 09/30/18 Subjective:: post op exploratory lap for ventral hernia Reason For Visit: SEPSIS post op exploratory laparotomy and ventral hernia repair Physical Exam Vital Signs: Temp Pulse Resp BP Pulse Ox 97.2 F 84 18 123/66 99 09/30/18 03:00 09/30/18 03:00 09/30/18 03:00 09/30/18 03:00 09/30/18 03:00 Intake & Output 09/29/18 09/30/18 10/01/18 06:59 06:59 06:59 Intake Total 3510 1300 Output Total 4124 3070 Balance -614 -1770 Weight 98 kg 101.3 kg General appearance: PRESENT: no acute distress Respiratory exam: PRESENT: clear to auscultation myla, unlabored Cardiovascular exam: PRESENT: RRR GI/Abdominal exam: PRESENT: hypoactive bowel sounds, soft, other - abd soft, wound clean, dry thien's serous few bs Results Laboratory Results: 09/30/18 06:19 09/29/18 09/29/18 09/30/18 07:29 07:29 06:19 WBC 9.0 8.8 RBC 3.26 L 3.39 L Hgb 8.9 L 9.2 L Hct 25.4 L 26.0 L MCV 78 L 77 L MCH 27.2 27.3 MCHC 35.0 35.5 RDW 14.7 H 14.1 H Plt Count 302 343 Seg Neutrophils % 74.1 Lymphocytes % 10.5 L Monocytes % 12.3 Eosinophils % 2.8 Basophils % 0.3 Absolute Neutrophils 6.7 Absolute Lymphocytes 1.0 Absolute Monocytes 1.1 Absolute Eosinophils 0.3 Absolute Basophils 0.0 Sodium 137.7 Potassium 3.4 L Chloride 101 Carbon Dioxide 29 Anion Gap 8 BUN 20 Creatinine 1.51 H Est GFR ( Amer) 47 L Est GFR (Non-Af Amer) 39 L Glucose 80 Calcium 7.5 L Impressions: Abdomen X-Ray 09/26/18 00:00 IMPRESSION: NON-SPECIFIC BOWEL GAS PATTERN .Few scattered small bowel loops with air fluid levels. Possibly mildly distended small bowel loops versus colonic gas on this supine projections. Follow-up if concern for developing obstruction. Abdomen/Pelvis CT 09/26/18 00:00 IMPRESSION: Moderate grade small bowel obstruction probably due to an 11 cm small bowel umbilical hernia Critical results reporting: Findings discussed with JOLYNN SHANKAR MD, immediately following interpretation of the examination on 09/26/2018 10:25 PM DISEASE CASE MANAGER. Chest X-Ray 09/26/18 00:00 IMPRESSION: Bilateral basilar airspace opacities suggesting subsegmental atelectasis. No pleural effusion. Follow-up recommended if concern for developing consolidation. Assessment & Plan - Inpatient Certification Medical Necessity: Need For IV Fluids, Need for IV Antibiotics - Plan Summary Plan Summary: doing better working with pt. sl more activity still no return of bowel function will start ng clamping trial today as her op has decreased dc jalloh cont iv abx lytes pending
[2018-09-30] MEDS ORDERED: ONDANSETRON HCL INJ/PF 4 MG/2 ML SDV IV PRN (07:31)
[2018-09-30] MEDS: NORMAL SALINE 1000 ML 1,000 ML IV PRN ×2 (08:17→17:31)
--- NOTE | 2018-09-30 09:07 | PDOC PROGRESS REPORT ---
Subjective Progress Note for:: 09/30/18 Subjective:: Feels gurgling in her abdomen but no flatus yet. Reason For Visit: SEPSIS Physical Exam Vital Signs: Temp Pulse Resp BP Pulse Ox 97.9 F 74 17 124/72 97 09/30/18 07:53 09/30/18 07:53 09/30/18 07:53 09/30/18 07:53 09/30/18 07:53 Intake & Output 09/29/18 09/30/18 10/01/18 06:59 06:59 06:59 Intake Total 3510 2300 Output Total 4124 3070 Balance -614 -770 Weight 98 kg 101.3 kg Exam: abdomen is soft with minimal tenderness Results Laboratory Results: 09/30/18 06:19 09/30/18 06:19 09/30/18 09/30/18 06:19 06:19 WBC 8.8 RBC 3.39 L Hgb 9.2 L Hct 26.0 L MCV 77 L MCH 27.3 MCHC 35.5 RDW 14.1 H Plt Count 343 Sodium 138.4 Potassium 3.1 L Chloride 105 Carbon Dioxide 27 Anion Gap 6 BUN 20 Creatinine 1.40 H Est GFR ( Amer) 51 L Est GFR (Non-Af Amer) 42 L Glucose 85 Calcium 7.4 L 09/26/18 16:50 Blood Blood Culture - Final Serratia Marcescens Impressions: Abdomen X-Ray 09/26/18 00:00 IMPRESSION: NON-SPECIFIC BOWEL GAS PATTERN .Few scattered small bowel loops with air fluid levels. Possibly mildly distended small bowel loops versus colonic gas on this supine projections. Follow-up if concern for developing obstruction. Abdomen/Pelvis CT 09/26/18 00:00 IMPRESSION: Moderate grade small bowel obstruction probably due to an 11 cm small bowel umbilical hernia Critical results reporting: Findings discussed with JOLYNN SHANKAR MD, immediately following interpretation of the examination on 09/26/2018 10:25 PM LOAN SECRETARY. Chest X-Ray 09/26/18 00:00 IMPRESSION: Bilateral basilar airspace opacities suggesting subsegmental atelectasis. No pleural effusion. Follow-up recommended if concern for developing consolidation. Assessment & Plan - Time Time Spent with patient: 15-24 minutes - Inpatient Certification Medical Necessity: Need For IV Fluids, Need for IV Antibiotics - Plan Summary Plan Summary: Continue NGT and antibiotics Called by Micro for blood c/s + for serratia marcessans sensitive to Zosyn D/C Vanco
[2018-09-30] MEDS: FAMOTIDINE INJ/PF 20 MG/2 ML SDV IV SCH ×2 (10:41→22:25)
[2018-09-30] MEDS: MORPHINE SULFATE 60 MG/60 ML RTUINJ IV PRN (17:31)
[2018-09-30] MEDS: POTASSIUM CHLORIDE 20 MEQ/50 ML RTU IV SCH ×2 (20:47→23:08)
[2018-09-30] MEDS ORDERED: POTASSI CL 20 MEQ/50 ML RIDER 20 MEQ/50 ML RTUPB IV ONE (22:53)
[2018-10-01] MEDS: PIPERACILLIN SODIUM/TAZOBACTAM 3.375 GM in NORMAL SALINE 100 ML IV SCH ×4 (01:38→18:16)
[2018-10-01] MEDS: KETOROLAC TROMETHAMINE INJ/PF 30 MG/1 ML SDV IV PRN (01:38)
[2018-10-01] MEDS: NORMAL SALINE 1000 ML 1,000 ML IV PRN (05:20)
[2018-10-01] MEDS: BACLOFEN 20 MG TABLET NG SCH ×4 (05:21→22:00)
[2018-10-01 06:39] LABS: ABSOLUTE EOSINOPHILS # (AUTO) 0.2 10^3/uL (0.0-0.6); ABSOLUTE LYMPHOCYTES (AUTO) 1.9 10^3/uL (0.5-4.7); ABSOLUTE MONOCYTES (AUTO) 1.8 10^3/uL (0.1-1.4); BASOPHILS % (AUTO) 0.3 % (0-2); EOSINOPHILS % (AUTO) 1.6 % (0-6); HEMATOCRIT 24.1 % (36.0-47.0); HEMOGLOBIN 8.5 g/dL (12.0-15.5); LYMPHOCYTES % (AUTO) 15.7 % (13-45); MEAN CORPUSCULAR HEMOGLOBIN 26.7 pg (27.0-33.4); MEAN CORPUSCULAR HGB CONC 35.3 g/dL (32.0-36.0); MEAN CORPUSCULAR VOLUME 76 fl (80-97); MONOCYTES % (AUTO) 15.4 % (3-13); PLATELET COUNT 346 10^3/uL (150-450); RED BLOOD COUNT 3.18 10^6/uL (3.72-5.28); TOTAL CELLS COUNTED % (AUTO) 100 %; WHITE BLOOD COUNT 11.9 10^3/uL (4.0-10.5)
[2018-10-01 07:02] LABS: APPEARANCE,URINE CLEAR; BILIRUBIN,URINE NEGATIVE (NEGATIVE); COLOR,URINE AMBER; GLUCOSE, URINE NEGATIVE (NEGATIVE); KETONES,URINE 20 mg/dL (NEGATIVE); LEUKOCYTE ESTERASE,URINE NEGATIVE (NEGATIVE); NITRITE,URINE NEGATIVE (NEGATIVE); PROTEIN,URINE 30 mg/dL (NEGATIVE); UROBILINOGEN,URINE NEGATIVE mg/dL (<2.0)
[2018-10-01 07:03] LABS: ANION GAP 9 (5-19); BLOOD UREA NITROGEN 17 mg/dL (7-20); CALCIUM 7.4 mg/dL (8.4-10.2); CARBON DIOXIDE 22 mmol/L (22-30); CHLORIDE 110 mmol/L (98-107); GLUCOSE 83 mg/dL (75-110); POTASSIUM 3.4 mmol/L (3.6-5.0); SODIUM 141.3 mmol/L (137-145)
--- NOTE | 2018-10-01 09:51 | PDOC PROGRESS REPORT ---
Subjective Progress Note for:: 10/01/18 Reason For Visit: SEPSIS Physical Exam Vital Signs: Temp Pulse Resp BP Pulse Ox 98.5 F 81 16 131/72 H 96 10/01/18 07:48 10/01/18 07:48 10/01/18 07:48 10/01/18 07:48 10/01/18 07:48 Intake & Output 09/30/18 10/01/18 10/02/18 06:59 06:59 06:59 Intake Total 2300 2855 Output Total 3180 1795 Balance -880 1060 Weight 101.3 kg 106.1 kg GI/Abdominal exam: PRESENT: other - abd soft +bs passing flatus ng iwth min op Results Laboratory Results: 10/01/18 05:44 10/01/18 05:44 10/01/18 10/01/18 10/01/18 05:44 05:44 06:11 WBC 11.9 H RBC 3.18 L Hgb 8.5 L Hct 24.1 L MCV 76 L MCH 26.7 L MCHC 35.3 RDW 15.0 H Plt Count 346 Seg Neutrophils % 67.0 Lymphocytes % 15.7 Monocytes % 15.4 H Eosinophils % 1.6 Basophils % 0.3 Absolute Neutrophils 8.0 Absolute Lymphocytes 1.9 Absolute Monocytes 1.8 H Absolute Eosinophils 0.2 Absolute Basophils 0.0 Sodium 141.3 Potassium 3.4 L Chloride 110 H Carbon Dioxide 22 Anion Gap 9 BUN 17 Creatinine 1.32 H Est GFR ( Amer) 54 L Est GFR (Non-Af Amer) 45 L Glucose 83 Calcium 7.4 L Urine Color AB Urine Appearance CLEAR Urine pH 5.0 Ur Specific [place] 1.020 Urine Protein 30 H Urine Glucose (UA) NEGATIVE Urine Ketones 20 H Urine Blood MODERATE H Urine Nitrite NEGATIVE Ur Leukocyte Esterase NEGATIVE Urine WBC (Auto) 4 Urine RBC (Auto) 6 09/27/18 01:19 Abdomen - Post Surgical Site Gram Stain - Final 09/27/18 01:19 Abdomen - Post Surgical Site Wound Culture - Final Serratia Marcescens No Anaerobic Organisms 09/26/18 16:50 Blood Blood Culture - Final Serratia Marcescens Impressions: Abdomen X-Ray 09/26/18 00:00 IMPRESSION: NON-SPECIFIC BOWEL GAS PATTERN .Few scattered small bowel loops with air fluid levels. Possibly mildly distended small bowel loops versus colonic gas on this supine projections. Follow-up if concern for developing obstruction. Abdomen/Pelvis CT 09/26/18 00:00 IMPRESSION: Moderate grade small bowel obstruction probably due to an 11 cm small bowel umbilical hernia Critical results reporting: Findings discussed with JOLYNN SHANKAR MD, immediately following interpretation of the examination on 09/26/2018 10:25 PM HOME HELP AIDE. Chest X-Ray 09/26/18 00:00 IMPRESSION: Bilateral basilar airspace opacities suggesting subsegmental atelectasis. No pleural effusion. Follow-up recommended if concern for develo ping consolidation. Assessment & Plan - Inpatient Certification Medical Necessity: Need For IV Fluids - Plan Summary Plan Summary: pt ;now passing flatus ng iwth min op will dc ng start clears dulcolax supp reglan
[2018-10-01] MEDS: FAMOTIDINE INJ/PF 20 MG/2 ML SDV IV SCH ×2 (10:27→21:55)
[2018-10-01] MEDS ORDERED: BISACODYL 10 MG SUPP.RECT PR ONE (10:30)
[2018-10-01] MEDS: METOCLOPRAMIDE HCL INJ/PF 10 MG/2 ML SDV IV SCH ×2 (12:58→18:16)
[2018-10-02] MEDS: NORMAL SALINE 1000 ML 1,000 ML IV PRN ×3 (00:02→23:43)
[2018-10-02] MEDS: METOCLOPRAMIDE HCL INJ/PF 10 MG/2 ML SDV IV SCH ×5 (00:02→23:42)
[2018-10-02] MEDS: PIPERACILLIN SODIUM/TAZOBACTAM 3.375 GM in NORMAL SALINE 100 ML IV SCH ×5 (00:02→23:43)
[2018-10-02] MEDS: BACLOFEN 20 MG TABLET NG SCH ×3 (05:50→23:41)
--- NOTE | 2018-10-02 06:53 | PDOC PROGRESS REPORT ---
Subjective Progress Note for:: 10/02/18 Reason For Visit: SEPSIS s/p exploratroy laparotomy and ventral hernia repair Physical Exam Vital Signs: Temp Pulse Resp BP Pulse Ox 97.9 F 76 18 134/79 H 93 10/02/18 03:35 10/02/18 03:35 10/02/18 03:35 10/02/18 03:35 10/02/18 03:35 Intake & Output 09/30/18 10/01/18 10/02/18 06:59 06:59 06:59 Intake Total 2300 2855 2236 Output Total 3180 1795 70 Balance -880 1060 2166 Weight 101.3 kg 106.1 kg 104.2 kg GI/Abdominal exam: PRESENT: hypoactive bowel sounds - wound clean, no evidence of infection retention sutures in place, soft Results Laboratory Results: 10/01/18 05:44 10/01/18 05:44 10/01/18 10/01/18 05:44 06:11 Sodium 141.3 Potassium 3.4 L Chloride 110 H Carbon Dioxide 22 Anion Gap 9 BUN 17 Creatinine 1.32 H Est GFR ( Amer) 54 L Est GFR (Non-Af Amer) 45 L Glucose 83 Calcium 7.4 L Urine Color AB Urine Appearance CLEAR Urine pH 5.0 Ur Specific [place] 1.020 Urine Protein 30 H Urine Glucose (UA) NEGATIVE Urine Ketones 20 H Urine Blood MODERATE H Urine Nitrite NEGATIVE Ur Leukocyte Esterase NEGATIVE Urine WBC (Auto) 4 Urine RBC (Auto) 6 09/26/18 15:41 Blood Blood Culture - Final NO GROWTH IN 5 DAYS Impressions: Abdomen X-Ray 09/26/18 00:00 IMPRESSION: NON-SPECIFIC BOWEL GAS PATTERN .Few scattered small bowel loops with air fluid levels. Possibly mildly distended small bowel loops versus colo javier gas on this supine projections. Follow-up if concern for developing obstruction. Abdomen/Pelvis CT 09/26/18 00:00 IMPRESSION: Moderate grade small bowel obstruction probably due to an 11 cm small bowel umbilical hernia Critical results reporting: Findings discussed with JOLYNN SHANKAR MD, immediately following interpretation of the examination on 09/26/2018 10:25 PM TECHNICAL COMMUNICATION TEACHER. Chest X-Ray 09/26/18 00:00 IMPRESSION: Bilateral basilar airspace opacities suggesting subsegmental atelectasis. No pleural effusion. Follow-up recommended if concern for developing consolidation. Assessment & Plan - Inpatient Certification Medical Necessity: Need for Pain Control, Need for IV Antibiotics - Plan Summary Plan Summary: pt still with difficulty ambulating due to the neuropathy passed small bm, some flatus refused dulcolax yesterday plan on physical rx today cont clears
[2018-10-02 07:08] LABS: HEMATOCRIT 26.1 % (36.0-47.0); HEMOGLOBIN 8.9 g/dL (12.0-15.5); MEAN CORPUSCULAR HEMOGLOBIN 26.3 pg (27.0-33.4); MEAN CORPUSCULAR HGB CONC 34.1 g/dL (32.0-36.0); MEAN CORPUSCULAR VOLUME 77 fl (80-97); PLATELET COUNT 400 10^3/uL (150-450); RED BLOOD COUNT 3.39 10^6/uL (3.72-5.28); RED CELL DISTRIBUTION WIDTH 14.6 % (11.5-14.0); WHITE BLOOD COUNT 14.4 10^3/uL (4.0-10.5)
[2018-10-02 07:34] LABS: ANION GAP 6 (5-19); BLOOD UREA NITROGEN 11 mg/dL (7-20); CALCIUM 7.6 mg/dL (8.4-10.2); CARBON DIOXIDE 26 mmol/L (22-30); CHLORIDE 108 mmol/L (98-107); GLUCOSE 98 mg/dL (75-110); POTASSIUM 3.1 mmol/L (3.6-5.0); SODIUM 140.2 mmol/L (137-145)
[2018-10-02] MEDS: FAMOTIDINE INJ/PF 20 MG/2 ML SDV IV SCH ×2 (11:38→23:42)
[2018-10-03] MEDS: METOCLOPRAMIDE HCL INJ/PF 10 MG/2 ML SDV IV SCH ×3 (05:56→21:47)
[2018-10-03] MEDS: PIPERACILLIN SODIUM/TAZOBACTAM 3.375 GM in NORMAL SALINE 100 ML IV SCH ×4 (05:57→21:42)
[2018-10-03] MEDS: BACLOFEN 20 MG TABLET NG SCH ×3 (05:57→21:44)
[2018-10-03] MEDS: FAMOTIDINE INJ/PF 20 MG/2 ML SDV IV SCH ×2 (10:49→21:46)
[2018-10-03] MEDS: POTASSI CL 20 MEQ/50 ML RIDER 20 MEQ/50 ML RTUPB IV SCH ×2 (10:50→19:27)
[2018-10-03] MEDS: NORMAL SALINE 1000 ML 1,000 ML IV PRN ×2 (10:51→23:34)
--- NOTE | 2018-10-03 11:50 | PDOC PROGRESS REPORT ---
Subjective Progress Note for:: 10/03/18 Subjective:: post op exploratory lap for ventral hernia Reason For Visit: SEPSIS Physical Exam Vital Signs: Temp Pulse Resp BP Pulse Ox 98.9 F 76 18 143/79 H 100 10/03/18 07:44 10/03/18 07:44 10/03/18 07:44 10/03/18 07:44 10/03/18 07:44 Intake & Output 10/02/18 10/03/18 10/04/18 06:59 06:59 06:59 Intake Total 2236 3900 1000 Output Total 70 605 Balance 2166 3295 1000 Weight 104.2 kg GI/Abdominal exam: PRESENT: soft - wound clean dry thien serous passing stool Results Laboratory Results: 10/02/18 06:27 10/02/18 06:27 Impressions: Abdomen X-Ray 09/26/18 00:00 IMPRESSION: NON-SPECIFIC BOWEL GAS PATTERN .Few scattered small bowel loops with air fluid levels. Possibly mildly distended small bowel loops versus colonic gas on this supine projections. Follow-up if concern for developing obstruction. Abdomen/Pelvis CT 09/26/18 00:00 IMPRESSION: Moderate grade small bowel obstruction probably due to an 11 cm small bowel umbilical hernia Critical results reporting: Findings discussed with JOLYNN SHANKAR MD, immediately following interpretation of the examination on 09/26/2018 10:25 PM BAG MACHINE ADJUSTER. Chest X-Ray 09/26/18 00:00 IMPRESSION: Bilateral basilar airspace opacities suggesting subsegmental atelectasis. No pleural effusion. Follow-up recommended if concern for developing consolidation. Assessment & Plan - Inpatient Certification Medical Necessity: Need for IV Antibiotics - Plan Summary Plan Summary: pt now with return of bowel function passing stool wbc sl elevvated today 14k k= 3.1 plan will advance diet replace k+ will give 1 dose of iv lasix after k+ replacement possible dc drains in am
[2018-10-03] MEDS ORDERED: POTASSI CL 20 MEQ/50 ML RIDER 20 MEQ/50 ML RTUPB IV SCH (13:00)
[2018-10-03] MEDS ORDERED: FUROSEMIDE INJ/PF 20 MG/2 ML SDV IV ONE (13:00)
[2018-10-03] MEDS ORDERED: POTASSIUM CHLORIDE 20 MEQ/50 ML RTU IV ONE (16:00)
[2018-10-04] MEDS: PROMETHAZINE HCL INJ 25 MG/1 ML VIAL IV PRN ×2 (01:43→21:19)
[2018-10-04] MEDS: METOCLOPRAMIDE HCL INJ/PF 10 MG/2 ML SDV IV SCH ×5 (03:58→23:12)
[2018-10-04] MEDS: PIPERACILLIN SODIUM/TAZOBACTAM 3.375 GM in NORMAL SALINE 100 ML IV SCH ×4 (03:58→20:26)
[2018-10-04] MEDS ORDERED: FUROSEMIDE INJ/PF 20 MG/2 ML SDV IV ONE (06:00)
[2018-10-04] MEDS: BACLOFEN 20 MG TABLET NG SCH ×2 (06:10→16:03)
[2018-10-04 06:53] LABS: ABSOLUTE BASOPHILS # (AUTO) 0.1 10^3/uL (0.0-0.2); ABSOLUTE EOSINOPHILS # (AUTO) 0.2 10^3/uL (0.0-0.6); ABSOLUTE LYMPHOCYTES (AUTO) 2.1 10^3/uL (0.5-4.7); ABSOLUTE MONOCYTES (AUTO) 1.3 10^3/uL (0.1-1.4); ABSOLUTE NEUT (AUTO) 11.4 10^3/uL (1.7-8.2); BASOPHILS % (AUTO) 0.8 % (0-2); EOSINOPHILS % (AUTO) 1.6 % (0-6); HEMATOCRIT 29.3 % (36.0-47.0); HEMOGLOBIN 10.1 g/dL (12.0-15.5); LYMPHOCYTES % (AUTO) 13.8 % (13-45); MEAN CORPUSCULAR HEMOGLOBIN 26.1 pg (27.0-33.4); MEAN CORPUSCULAR HGB CONC 34.4 g/dL (32.0-36.0); MEAN CORPUSCULAR VOLUME 76 fl (80-97); MONOCYTES % (AUTO) 8.3 % (3-13); PLATELET COUNT 458 10^3/uL (150-450); RED BLOOD COUNT 3.86 10^6/uL (3.72-5.28); RED CELL DISTRIBUTION WIDTH 14.7 % (11.5-14.0); SEGMENTED NEUTROPHILS % (AUTO) 75.5 % (42-78); TOTAL CELLS COUNTED % (AUTO) 100 %; WHITE BLOOD COUNT 15.1 10^3/uL (4.0-10.5)
[2018-10-04 07:26] LABS: ANION GAP 5 (5-19); BLOOD UREA NITROGEN 5 mg/dL (7-20); CALCIUM 8.4 mg/dL (8.4-10.2); CARBON DIOXIDE 26 mmol/L (22-30); CHLORIDE 109 mmol/L (98-107); GLUCOSE 93 mg/dL (75-110); POTASSIUM 3.2 mmol/L (3.6-5.0); SODIUM 140.3 mmol/L (137-145)
[2018-10-04] MEDS: FAMOTIDINE INJ/PF 20 MG/2 ML SDV IV SCH ×2 (09:37→21:19)
[2018-10-04] MEDS: POTASSI CL 20 MEQ/50 ML RIDER 20 MEQ/50 ML RTUPB IV SCH ×2 (11:22→14:54)
--- NOTE | 2018-10-04 12:00 | PDOC PROGRESS REPORT ---
Subjective Progress Note for:: 10/04/18 Reason For Visit: SEPSIS Physical Exam Vital Signs: Temp Pulse Resp BP Pulse Ox 98.1 F 91 18 131/61 H 99 10/04/18 07:00 10/04/18 07:00 10/04/18 07:00 10/04/18 07:00 10/04/18 07:00 Intake & Output 10/03/18 10/04/18 10/05/18 06:59 06:59 06:59 Intake Total 4000 3980 Output Total 605 2820 Balance 3395 1160 Weight 105.6 kg GI/Abdominal exam: PRESENT: soft - abd soft +bs woud with sl drainage in skin fold under retention suture suture removed rt thien removed. Results Laboratory Results: 10/04/18 06:40 10/04/18 06:40 10/04/18 10/04/18 06:40 06:40 WBC 15.1 H RBC 3.86 Hgb 10.1 L Hct 29.3 L MCV 76 L MCH 26.1 L MCHC 34.4 RDW 14.7 H Plt Count 458 H Seg Neutrophils % 75.5 Lymphocytes % 13.8 Monocytes % 8.3 Eosinophils % 1.6 Basophils % 0.8 Absolute Neutrophils 11.4 H Absolute Lymphocytes 2.1 Absolute Monocytes 1.3 Absolute Eosinophils 0.2 Absolute Basophils 0.1 Sodium 140.3 Potassium 3.2 L Chloride 109 H Carbon Dioxide 26 Anion Gap 5 BUN 5 L Creatinine 1.05 Est GFR ( Amer) > 60 Est GFR (Non-Af Amer) 59 L Glucose 93 Calcium 8.4 Impressions: Abdomen X-Ray 09/26/18 00:00 IMPRESSION: NON-SPECIFIC BOWEL GAS PATTERN .Few scattered small bowel loops with air fluid levels. Possibly mildly distended small bowel loops versus colonic gas on this supine projections. Follow-up if concern for developing obstruction. 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 Chest X-Ray 09/26/18 00:00 IMPRESSION: Bilateral basilar airspace opacities suggesting subsegmental atelectasis. No pleural effusion. Follow-up recommended if concern for developing consolidation. Assessment & Plan - Plan Summary Plan Summary: wbc sl up to 15k pt afeb vss will cont current rx trend cbc advnce diet
[2018-10-04] MEDS ORDERED: POTASSI CL 20 MEQ/50 ML RIDER 20 MEQ/50 ML RTUPB IV ONE ×2 (14:52→21:00)
[2018-10-04] MEDS ORDERED: DOCUSATE SODIUM 100 MG CAPSULE PO ONE (16:00)
[2018-10-04] MEDS: BACLOFEN 20 MG TABLET PO SCH (21:19)
[2018-10-04] MEDS: NORMAL SALINE 1000 ML 1,000 ML IV PRN (21:22)
[2018-10-04] MEDS ORDERED: MORPHINE SULFATE 10 MG/ML INJ IV PRN (22:09)
[2018-10-05] MEDS: PIPERACILLIN SODIUM/TAZOBACTAM 3.375 GM in NORMAL SALINE 100 ML IV SCH ×4 (03:45→21:14)
[2018-10-05] MEDS: METOCLOPRAMIDE HCL INJ/PF 10 MG/2 ML SDV IV SCH ×4 (03:46→21:26)
[2018-10-05] MEDS: NORMAL SALINE 1000 ML 1,000 ML IV PRN ×2 (04:33→14:39)
[2018-10-05] MEDS: BACLOFEN 20 MG TABLET PO SCH ×3 (06:11→21:16)
[2018-10-05 06:25] LABS: HEMATOCRIT 25.4 % (36.0-47.0); MEAN CORPUSCULAR HEMOGLOBIN 26.6 pg (27.0-33.4); MEAN CORPUSCULAR HGB CONC 35.5 g/dL (32.0-36.0); MEAN CORPUSCULAR VOLUME 75 fl (80-97); PLATELET COUNT 399 10^3/uL (150-450); RED CELL DISTRIBUTION WIDTH 14.4 % (11.5-14.0); WHITE BLOOD COUNT 16.6 10^3/uL (4.0-10.5)
[2018-10-05 06:39] LABS: ANION GAP 8 (5-19); BLOOD UREA NITROGEN 4 mg/dL (7-20); CALCIUM 7.7 mg/dL (8.4-10.2); CARBON DIOXIDE 25 mmol/L (22-30); CHLORIDE 108 mmol/L (98-107); GLUCOSE 81 mg/dL (75-110); POTASSIUM 3.1 mmol/L (3.6-5.0); SODIUM 140.5 mmol/L (137-145)
--- NOTE | 2018-10-05 07:42 | PDOC PROGRESS REPORT ---
Subjective Progress Note for:: 10/05/18 Reason For Visit: SEPSIS Physical Exam Vital Signs: Temp Pulse Resp BP Pulse Ox 98.4 F 83 18 153/83 H 97 10/05/18 03:36 10/05/18 03:36 10/05/18 03:36 10/05/18 03:36 10/05/18 03:36 Intake & Output 10/04/18 10/05/18 10/06/18 06:59 06:59 06:59 Intake Total 3980 2498 Output Total 2820 30 Balance 1160 2468 Weight 105.6 kg 103.9 kg Respiratory exam: PRESENT: unlabored GI/Abdominal exam: PRESENT: soft - abd soft 'wound with some serous drainage sl swollen, no fluctulence. nadir in lower tranverse incision no celllulitis. Results Laboratory Results: 10/05/18 06:10 10/05/18 06:10 10/05/18 10/05/18 06:10 06:10 WBC 16.6 H RBC 3.40 L Hgb 9.0 L Hct 25.4 L MCV 75 L MCH 26.6 L MCHC 35.5 RDW 14.4 H Plt Count 399 Sodium 140.5 Potassium 3.1 L Chloride 108 H Carbon Dioxide 25 Anion Gap 8 BUN 4 L Creatinine 0.94 Est GFR ( Amer) > 60 Est GFR (Non-Af Amer) > 60 Glucose 81 Calcium 7.7 L Impressions: Abdomen X-Ray 09/26/18 00:00 IMPRESSION: NON-SPECIFIC BOWEL GAS PATTERN .Few scattered small bowel loops with air fluid levels. Possibly mildly distended small bowel loops versus colonic gas on this supine projections. Follow-up if concern for developing obstruction. 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 Chest X-Ray 09/26/18 00:00 IMPRESSION: Bilateral basilar airspace opacities suggesting subsegmental atelectasis. No pleural effusion. Follow-up recommended if concern for developing consolidation. Assessment & Plan - Plan Summary Plan Summary: pt generally doing well now with return of bowel function geovanni reg diet nl bm wbc trending up to 16k today will obtain ct abd today r/o subcutanous fluid collection vs absces vs intrabdominal fluid will restart pts lyrica today
--- NOTE | 2018-10-05 08:40 | RADIOLOGY REPORT (SQ) ---
EXAM DESCRIPTION: CT ABD/PELVIS NO ORAL OR IV COMPLETED DATE/TIME: 10/05/2018 8:14 am REASON FOR STUDY: r/o abd abscess COMPARISON: 09/26/2018 TECHNIQUE: CT scan of the abdomen and pelvis performed without intravenous or oral contrast. Images reviewed with lung, soft tissue, and bone windows. Reconstructed coronal and sagittal MPR images revi ewed. All images stored on PACS. All CT scanners at this facility use dose modulation, iterative reconstruction, and/or weight based d osing when appropriate to reduce radiation dose to as low as reasonably achievable (ALARA). [facility]: Dose Right [facility]: CareDose [facility]: Dose Right [facility]: Teradose 4D [facility]: [employer] RADIATION DOSE: CT Rad equipment meets quality standard of care and radiation dose reduction techniq ues were employed. CTDIvol: 19.9 mGy. DLP: 1082 mGy-cm.mGy. LIMITATIONS: No oral contrast. FINDINGS: LOWER CHEST: Small pleural effusions. NON-CONTRASTED LIVER, SPLEEN, ADRENALS: Evaluation limited by lack of IV contrast. No identified sign ificant masses. PANCREAS: No masses. No peripancreatic inflammatory changes. GALLBLADDER: No identified stones by CT criteria. No inflammatory changes to suggest cholecystitis. RIGHT KIDNEY AND URETER: No suspicious masses. Assessment limited by lack of IV contrast. No signif icant calcifications. No hydronephrosis or hydroureter. LEFT KIDNEY AND URETER: No suspicious masses. Assessment limited by lack of IV contrast. No signifi cant calcifications. No hydronephrosis or hydroureter. AORTA AND RETROPERITONEUM: No aneurysm. No retroperitoneal masses or adenopathy. BOWEL AND PERITONEAL CAVITY: Pneumoperitoneum status post recent ventral hernia repair. Mesh is inta ct. Anastomosis mid abdomen to left of midline. No obstruction. APPENDIX: Not visualized. PELVIS, BLADDER, AND ABDOMINAL WALL:Midline skin nadir. Subcutaneous surgical drain. Body wall ed chandrika. BONES: Nothing acute. OTHER: No other significant finding. IMPRESSION: No abscess identified. COMMENT: Quality ID # [id number]: Final reports with documentation of one or more dose reduction techniques (e.g., Automated exposure control, adjustment of the mA and/or kV according to patient size, use of iterative reconstruction technique) TECHNICAL DOCUMENTATION: JOB ID: [id number] [employer]- All Rights Reserved Reading location - IP[facility]workstation name: [email or web address]
[2018-10-05] MEDS: PREGABALIN 75 MG CAPSULE PO SCH ×3 (08:53→21:17)
[2018-10-05] MEDS: FAMOTIDINE INJ/PF 20 MG/2 ML SDV IV SCH ×2 (09:00→21:18)
[2018-10-05] MEDS ORDERED: PREGABALIN 100 MG CAPSULE PO SCH (10:00)
[2018-10-05] MEDS: PROMETHAZINE HCL INJ 25 MG/1 ML VIAL IV PRN (11:36)
[2018-10-06] MEDS: NORMAL SALINE 1000 ML 1,000 ML IV PRN ×2 (01:36→21:36)
[2018-10-06] MEDS: METOCLOPRAMIDE HCL INJ/PF 10 MG/2 ML SDV IV SCH ×4 (02:37→21:35)
[2018-10-06] MEDS: PIPERACILLIN SODIUM/TAZOBACTAM 3.375 GM in NORMAL SALINE 100 ML IV SCH ×4 (02:38→21:36)
[2018-10-06] MEDS: BACLOFEN 20 MG TABLET PO SCH ×3 (06:20→22:39)
[2018-10-06] MEDS: PREGABALIN 75 MG CAPSULE PO SCH ×3 (06:20→22:39)
[2018-10-06] MEDS ORDERED: BISACODYL 10 MG SUPP.RECT PR PRN (07:37)
--- NOTE | 2018-10-06 07:44 | PDOC PROGRESS REPORT ---
Subjective Progress Note for:: 10/06/18 Reason For Visit: SEPSIS Physical Exam Vital Signs: Temp Pulse Resp BP Pulse Ox 98.6 F 85 20 122/92 H 100 10/06/18 03:23 10/06/18 03:23 10/06/18 03:23 10/06/18 03:23 10/06/18 03:23 Intake & Output 10/05/18 10/06/18 10/07/18 06:59 06:59 06:59 Intake Total 2498 2800 Output Total 30 10 Balance 2468 2790 Weight 103.9 kg 103.3 kg GI/Abdominal exam: PRESENT: soft - abd with some drainage via lower abd incision still swollen around lower abd incision c/w phlegmon seen on ct yesterday Results Laboratory Results: 10/05/18 06:10 10/05/18 06:10 Impressions: Abdomen X-Ray 09/26/18 00:00 IMPRESSION: NON-SPECIFIC BOWEL GAS PATTERN .Few scattered small bowel loops with air fluid levels. Possibly mildly distended small bowel loops versus colonic gas on this supine projections. Follow-up if concern for developing obstruction. Chest X-Ray 09/26/18 00:00 IMPRESSION: Bilateral basilar airspace opacities suggesting subsegmental atelectasis. No pleural effusion. Follow-up recommended if concern for developing consolidation. Abdomen/Pelvis CT 10/05/18 00:00 IMPRESSION: No abscess identified. Assessment & Plan - Inpatient Certification Medical Necessity: Need for IV Antibiotics - Plan Summary Plan Summary: pt still with difficulty with ambulating due to ms. has been working with ptcandelario, no ambulating indendently. able to pivot from bed to wheelchair pt has had return of bowel function and geovanni reg diet wound still sl open with serous drainage. wbc yesterday 16k however no abscess seen on ct only inflammed tissue around lower surg site current plan: cont to work with pt, when able to ambulate with walker or pivot to wheelchair (as she was doing preop) will be able to discharge home pt has been seeing outside neurologist who is seeing her for her ambulation difficulty and the ms will check wbc today consider stopping zosyn.
[2018-10-06] MEDS: FAMOTIDINE INJ/PF 20 MG/2 ML SDV IV SCH ×2 (09:34→22:39)
--- NOTE | 2018-10-06 17:18 | Discharge Summary ---
Discharge Summary (SDC) - Discharge Final Diagnosis: new onset diabetes pelvic abscess Date of Surgery: 09/27/18 Condition: Good Treatment or Instructions: needs f/u with primary md for diabetes management needs f/u with surgery in 7-10 days post diagnostic laparoscopy/appendectomy needs to hot die picker her insulin, metformin,and antibiotics. [facility]errals: [facility] [NO [facility]AL MD] - Follow up as needed Discharge Diet: Diabetic Discharge Activity: Activity As Tolerated Home Care Assistance: None Needed Report the Following to Your Physician Immediately: Shortness of Breath, Nausea, Vomiting, Increase in Pain, Signs of Hyperglycemia, Signs of Hypoglycemia, Fever over 101 Degrees, Unusual Bleeding
[2018-10-07] MEDS: METOCLOPRAMIDE HCL INJ/PF 10 MG/2 ML SDV IV SCH ×3 (02:16→14:59)
[2018-10-07] MEDS: PIPERACILLIN SODIUM/TAZOBACTAM 3.375 GM in NORMAL SALINE 100 ML IV SCH ×4 (02:18→22:10)
[2018-10-07] MEDS: PREGABALIN 75 MG CAPSULE PO SCH ×3 (06:00→22:08)
[2018-10-07] MEDS: BACLOFEN 20 MG TABLET PO SCH ×3 (06:00→22:08)
[2018-10-07 06:33] LABS: HEMOGLOBIN 9.5 g/dL (12.0-15.5); MEAN CORPUSCULAR HEMOGLOBIN 26.7 pg (27.0-33.4); MEAN CORPUSCULAR HGB CONC 35.2 g/dL (32.0-36.0); MEAN CORPUSCULAR VOLUME 76 fl (80-97); PLATELET COUNT 457 10^3/uL (150-450); RED BLOOD COUNT 3.56 10^6/uL (3.72-5.28); RED CELL DISTRIBUTION WIDTH 14.8 % (11.5-14.0); WHITE BLOOD COUNT 14.7 10^3/uL (4.0-10.5)
--- NOTE | 2018-10-07 08:17 | PDOC PROGRESS REPORT ---
Subjective Progress Note for:: 10/07/18 Reason For Visit: SEPSIS Physical Exam Vital Signs: Temp Pulse Resp BP Pulse Ox 99.6 F 83 20 141/79 H 98 10/07/18 03:36 10/07/18 03:36 10/07/18 03:36 10/07/18 03:36 10/07/18 03:36 Intake & Output 10/06/18 10/07/18 10/08/18 06:59 06:59 06:59 Intake Total 2800 1850 Output Total 10 40 Balance 2790 1810 Weight 103.3 kg 102.2 kg GI/Abdominal exam: PRESENT: soft - abd soft, wound sl open at midline of transverse incision serous drainage, no pus thien min op will dc will dc retention suture. dc nadir from transverse incision, left 2-3 at midline Results Laboratory Results: 10/07/18 06:24 10/05/18 06:10 10/07/18 06:24 WBC 14.7 H RBC 3.56 L Hgb 9.5 L Hct 27.0 L MCV 76 L MCH 26.7 L MCHC 35.2 RDW 14.8 H Plt Count 457 H Impressions: Abdomen X-Ray 09/26/18 00:00 IMPRESSION: NON-SPECIFIC BOWEL GAS PATTERN .Few scattered small bowel loops with air fluid levels. Possibly mildly distended small bowel loops versus colo javier gas on this supine projections. Follow-up if concern for developing obstruction. Chest X-Ray 09/26/18 00:00 IMPRESSION: Bilateral basilar airspace opacities suggesting subsegmental atelectasis. No pleural effusion. Follow-up recommended if concern for developing consolidation. Abdomen/Pelvis CT 10/05/18 00:00 IMPRESSION: No abscess identified. Assessment & Plan - Inpatient Certification Medical Necessity: Need for Pain Control - doing better geovanni reg diet with return of bowel function wbc trending down thien and retention suture removed pt still with difficulty walking (preop multiple sclerosis?) will plan on dc tomorrow or friday she will need f/u with her neurologist.
[2018-10-07] MEDS: FAMOTIDINE INJ/PF 20 MG/2 ML SDV IV SCH ×2 (10:30→22:08)
[2018-10-07] MEDS: KETOROLAC TROMETHAMINE INJ/PF 30 MG/1 ML SDV IV PRN (22:29)
[2018-10-07] MEDS ORDERED: PIPERACILLIN SODIUM/TAZOBACTAM 3.375 GM in NORMAL SALINE 100 ML IV ONE (23:00)
[2018-10-08] MEDS: PREGABALIN 75 MG CAPSULE PO SCH ×3 (06:28→21:53)
[2018-10-08] MEDS: BACLOFEN 20 MG TABLET PO SCH ×3 (06:28→21:53)
[2018-10-08] MEDS: PIPERACILLIN SODIUM/TAZOBACTAM 3.375 GM in NORMAL SALINE 100 ML IV SCH ×3 (06:30→17:59)
[2018-10-08] MEDS: NORMAL SALINE 1000 ML 1,000 ML IV PRN ×2 (06:34→14:16)
[2018-10-08 06:57] LABS: ABSOLUTE BASOPHILS # (AUTO) 0.1 10^3/uL (0.0-0.2); ABSOLUTE EOSINOPHILS # (AUTO) 0.3 10^3/uL (0.0-0.6); ABSOLUTE LYMPHOCYTES (AUTO) 2.4 10^3/uL (0.5-4.7); ABSOLUTE MONOCYTES (AUTO) 1.3 10^3/uL (0.1-1.4); ABSOLUTE NEUT (AUTO) 8.5 10^3/uL (1.7-8.2); BASOPHILS % (AUTO) 0.6 % (0-2); HEMATOCRIT 26.2 % (36.0-47.0); LYMPHOCYTES % (AUTO) 19.2 % (13-45); MEAN CORPUSCULAR HEMOGLOBIN 26.3 pg (27.0-33.4); MEAN CORPUSCULAR HGB CONC 34.4 g/dL (32.0-36.0); MEAN CORPUSCULAR VOLUME 76 fl (80-97); MONOCYTES % (AUTO) 10.6 % (3-13); PLATELET COUNT 434 10^3/uL (150-450); RED BLOOD COUNT 3.43 10^6/uL (3.72-5.28); RED CELL DISTRIBUTION WIDTH 14.6 % (11.5-14.0); SEGMENTED NEUTROPHILS % (AUTO) 67.6 % (42-78); TOTAL CELLS COUNTED % (AUTO) 100 %; WHITE BLOOD COUNT 12.7 10^3/uL (4.0-10.5)
[2018-10-08] MEDS: METOCLOPRAMIDE HCL INJ/PF 10 MG/2 ML SDV IV SCH ×4 (07:30→21:04)
[2018-10-08] MEDS: FAMOTIDINE INJ/PF 20 MG/2 ML SDV IV SCH (09:53)
--- NOTE | 2018-10-08 15:06 | PDOC PROGRESS REPORT ---
Subjective Progress Note for:: 10/08/18 Reason For Visit: SEPSIS Physical Exam Vital Signs: Temp Pulse Resp BP Pulse Ox 98.1 F 75 18 134/70 H 99 10/08/18 15:01 10/08/18 15:01 10/08/18 15:01 10/08/18 15:01 10/08/18 15:01 Intake & Output 10/07/18 10/08/18 10/09/18 06:59 06:59 06:59 Intake Total 2850 500 1263 Output Total 40 5 Balance 2810 495 1263 Weight 102.2 kg 3.38 kg GI/Abdominal exam: PRESENT: soft - abd soft non tender incision improved, less drainage softer. Results Laboratory Results: 10/08/18 06:31 10/05/18 06:10 10/08/18 06:31 WBC 12.7 H RBC 3.43 L Hgb 9.0 L Hct 26.2 L MCV 76 L MCH 26.3 L MCHC 34.4 RDW 14.6 H Plt Count 434 Seg Neutrophils % 67.6 Lymphocytes % 19.2 Monocytes % 10.6 Eosinophils % 2.0 Basophils % 0.6 Absolute Neutrophils 8.5 H Absolute Lymphocytes 2.4 Absolute Monocytes 1.3 Absolute Eosinophils 0.3 Absolute Basophils 0.1 Impressions: Abdomen X-Ray 09/26/18 00:00 IMPRESSION: NON-SPECIFIC BOWEL GAS PATTERN .Few scattered small bowel loops with air fluid levels. Possibly mildly distended small bowel loops versus colonic gas on this supine projections. Follow-up if concern for developing o bstruction. Chest X-Ray 09/26/18 00:00 IMPRESSION: Bilateral basilar airspace opacities suggesting subsegmental atelectasis. No pleural effusion. Follow-up recommended if concern for developing consolidation. Abdomen/Pelvis CT 10/05/18 00:00 IMPRESSION: No abscess identified. Assessment & Plan - Plan Summary Plan Summary: incision improved less drainage pt geovanni reg diet no bowel function retention sutures and drain reomoved will plan on dc home tomorrow.
[2018-10-09] MEDS: METOCLOPRAMIDE HCL INJ/PF 10 MG/2 ML SDV IV SCH ×2 (03:00→10:16)
[2018-10-09] MEDS: PREGABALIN 75 MG CAPSULE PO SCH (05:47)
[2018-10-09] MEDS: BACLOFEN 20 MG TABLET PO SCH (05:47)
[2018-10-09 07:10] LABS: HEMATOCRIT 27.1 % (36.0-47.0); HEMOGLOBIN 9.6 g/dL (12.0-15.5); MEAN CORPUSCULAR HEMOGLOBIN 26.9 pg (27.0-33.4); MEAN CORPUSCULAR HGB CONC 35.3 g/dL (32.0-36.0); MEAN CORPUSCULAR VOLUME 76 fl (80-97); PLATELET COUNT 453 10^3/uL (150-450); RED BLOOD COUNT 3.55 10^6/uL (3.72-5.28); RED CELL DISTRIBUTION WIDTH 14.6 % (11.5-14.0); WHITE BLOOD COUNT 10.9 10^3/uL (4.0-10.5)
--- NOTE | 2018-10-09 08:46 | PDOC DISCHARGE SUMMARY ---
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 Initial procedure she had a ventral hernia repair sent to the emergency room with increasing abdominal pain nausea and vomiting with a elevated temperature. Increased white count and questionable pneumonia on chest x-ray she was admitted to the hospital for IV antibiotics and treatment of the pneumonia. The first evening her current course worsened and she underwent a CT scan of her abdomen showed a dehiscence of her previous hernia repair. To the operating room where she underwent expiratory laparotomy for strangulated ventral hernia. Postoperatively she has had a fairly benign course Shiley during her second procedure she underwent abdominal wall closure with retention sutures and Tay-Bonilla drains. During her 11-day stay after the surgery she had return of bowel function her wound closed at the midline aspect. However the lower transverse incision that had been previously closed at slow healing with some serous drainage. Is now has return of bowel function her white count is normal is tolerating a regular diet. Her longitudinal midline wound is closed the retention sutures have been removed her lower transverse incision healing over the T aspect between the longitudinal wound in the transverse wound is still slightly open with serous drainage He has been instructed in wound care to change the gauze in the wound as needed during the day and to wash the wound with a shower at least once a day. Skating her hospital course has been her difficulty ambulating. She has possible sclerosis lower extremity weakness. During hospitalization she was able to pivot from her bed or chair to her wheelchair is essentially wheelchair bound although she does ambulate slightly at home. She has been working with a neurologist in the community and she has been in contact with him during this hospital stay. He will see her sometime next week after her discharge from the hospital. Her white blood count is normal versus hemoglobin and hematocrit are stable he is tolerating a regular diet but instructed in wound care she will get a follow- up appointment with me about 5 days after discharge Charge medications are only for Percocet 5-325 mg to take on a as needed basis she will be given 20 tablets Hospital Course Hospital Course: For hospital course please see the HPI previously dictated Physical Exam Vital Signs: Temp Pulse Resp BP Pulse Ox 98.5 F 70 15 131/75 H 100 10/09/18 07:29 10/09/18 07:29 10/09/18 07:29 10/09/18 07:29 10/09/18 07:29 Intake & Output 10/08/18 10/09/18 10/10/18 06:59 06:59 06:59 Intake Total 500 2263 Output Total 5 Balance 495 2263 Weight 3.38 kg 106 kg General appearance: PRESENT: no acute distress Head exam: PRESENT: atraumatic Eye exam: PRESENT: EOMI Mouth exam: PRESENT: dry mucosa Neck exam: PRESENT: full ROM Respiratory exam: PRESENT: clear to auscultation myla Cardiovascular exam: PRESENT: RRR Pulses: PRESENT: normal carotid pulses, normal radial pulses, normal femoral pulses GI/Abdominal exam: PRESENT: soft - longitiduinal incision healing well transvers insision healing well. The T between the longitudinal incision and the transverse incision that remains slightly open with serous drainage that is being managed with gauze covering. Wound is clean no evidence of fluctuance or cellulitis. Extremities exam: PRESENT: other - Lower extremities are chronically swollen with secondary to lymphedema. Able to pivot from the bed to a wheelchair and with the help of a walker for a few steps. This is a similar condition she had prior to her admission. Neurological exam: PRESENT: abnormal gait Skin exam: PRESENT: dry Results Laboratory Results: 10/09/18 06:30 10/05/18 06:10 10/09/18 06:30 WBC 10.9 H RBC 3.55 L Hgb 9.6 L Hct 27.1 L MCV 76 L MCH 26.9 L MCHC 35.3 RDW 14.6 H Plt Count 453 H Impressions: Abdomen X-Ray 09/26/18 00:00 IMPRESSION: NON-SPECIFIC BOWEL GAS PATTERN .Few scattered small bowel loops with air fluid levels. Possibly mildly distended small bowel loops versus colonic gas on this supine projections. Follow-up if concern for developing obstruction. Chest X-Ray 09/26/18 00:00 IMPRESSION: Bilateral basilar airspace opacities suggesting subsegmental atelectasis. No pleural effusion. Follow-up recommended if concern for devel oping consolidation. Abdomen/Pelvis CT 10/05/18 00:00 IMPRESSION: No abscess identified. Qualifiers - * PATIENT BEING DISCHARGED WITH ANY OF THE FOLLOWING DIAGNOSIS: No, Stroke Stroke Pt being discharged on Anti-thrombolytic therapy?: No Reason(s) for not prescribing Anti-thrombolytic therapy:: Not indicated Stroke Pt being discharged on Anti-coagulation therapy?: No Reason(s) for not prescribing Anti-coagulation therapy:: Not indicated Stroke Pt being discharged on Statins?: No Reason(s) for not prescribing Statins therapy:: Not indicated Reason(s) for not prescribing Aspirin therapy:: Not indicated Reason(s) for not prescribing ACEI/ARBS:: Not indicated HF Pt being discharged on ACEI for LVEF less than 40%?: No Reason(s) for not prescribing ACEI:: Not indicated HF Pt being discharged on ARBS for LVEF less than 40%?: No Reason(s) for not prescribing ARBS:: Not indicated HF Pt with Afib discharged with Warfarin?: No Reason(s) for not prescribing Warfarin:: Not indicated HF Pt discharged on evidence-based Beta Erik:: No Reason(s) for not prescribing evidence-based Beta Erik:: Not indicated Plan Discharge Plan: Today she will be discharged home has been instructed in wound care will be following up with her primary neurologist for continued workup of her multiple sclerosis. She is instructed to her every day and watch her lower abdominal wound with soap and water and then recovered with gauze. Given be given an appointment with me approximately 5-7 days after discharge Time Spent: Greater than 30 Minutes
[2018-10-09 09:15] VITALS: BP 131/74
[2018-10-09] MEDS ORDERED: FAMOTIDINE 20 MG TABLET PO SCH (10:00)
== END 2018-10-09 11:40 | disposition home health service (06) | DRG 329 ==
LOC: ER 12:47 → EH 17:17 → 2N 18:30
PROVIDERS: ADMIT Surgery; ATTEND Surgery
PROC: 0WUF0JZ Supplement Abdominal Wall with Synthetic Substitute, Open Approach (ICD-10-PCS; 2018-09-27)
PROC: 0DT80ZZ Resection of Small Intestine, Open Approach (ICD-10-PCS; principal; 2018-09-27 01:00)
DX: K43.6 Other and unspecified ventral hernia with obstruction, without gangrene (principal); K63.1 Perforation of intestine (nontraumatic); G82.20 Paraplegia, unspecified; D72.829 Elevated white blood cell count, unspecified; R10.9 Unspecified abdominal pain; K21.9 Gastro-esophageal reflux disease without esophagitis; G35 Multiple sclerosis; D57.3 Sickle-cell trait; G62.9 Polyneuropathy, unspecified; R32 Unspecified urinary incontinence; F17.210 Nicotine dependence, cigarettes, uncomplicated
CPT/HCPCS: 00790; 36415; 51702; 71046; 74019; 74176; 74177; 80048; 80053; 80202; 81001; 83605; 83690; 84703; 85025; 85027; 86850; 86900; 86901; 87040; 87070; 87075; 87077; 87086; 87186; 87205; 88307; 96361; 96365; 96375; 99285; C1781; J0131; J1170; J1644; J1885; J1940; J2250; J2270; J2405; J2543; J2550; J2704; J2765; J3010; J3370; J3480; J3490; J7030; J7060; J7120; P9047; S0028; S0164